=== PATIENT | female | born 1955 | race Caucasian/White ===

== ENCOUNTER 2024-11-18 17:54 | Inpatient (IN) | payer MEDICARE, SELFPAY ==
[2024-11-18] VITALS (14 sets, daily range): BP systolic 112–136; BP diastolic 60–71; BMI 20.9
[2024-11-18] MEDS: ZOFRAN 4 MG IV (08:34)
[2024-11-18] MEDS: NSS 1000 IV (08:35)
[2024-11-18] MEDS: DILAUDID 0.5 MG IV ×2 (08:35→21:50)
[2024-11-18] MEDS: OMNIPAQUE 50 ML PO (08:36)
[2024-11-18 08:43] LABS: % Basophils 0.9 % (0-2); % Eosinophils 0.1 % (0-6); % Immature Granulocytes 0.5 % (0-0.5); % Monocytes 6.3 % (1.7-9.3); % Neutrophils 80.2 % (42.2-75.2); Absolute Basophils 0.1 10^3/uL (0-0.2); Absolute Immature Granulocytes 0.1 10^3/uL (0-0.05); Absolute Lymphocytes 1.4 10^3/uL (1.2-3.4); Absolute Monocytes 0.7 10^3/uL (0.1-0.6); Absolute Neutrophils 9.4 10^3/uL (1.4-6.5); Hematocrit 37.1 % (37.0-47.0); Hemoglobin 12.9 g/dL (12.0-16.0); Mean Corp Hgb Conc. 34.8 g/dL (33.0-37.0); Mean Corpuscular Hgb 32.7 pg (27.0-31.0); Mean Corpuscular Volume 94.2 fL (81.0-99.0); Mean Platelet Volume 9.2 fL (7.4-10.4); Nucleated Red Blood Cells % 0 %; Platelet Count 326 10^3/uL (130-400); Red Blood Cell Count 3.94 10^6/uL (4.20-5.40); Red Cell Dist. Width 14.6 % (11.5-14.5); White Blood Cell Count 11.7 10^3/uL (4.8-10.8)
[2024-11-18 08:44] LABS: Urine Albumin Negative (Neg - Trace); Urine Bilirubin Negative (Negative); Urine Character Clear (Clear); Urine Color Yellow; Urine Glucose Negative (Negative); Urine Ketone Negative (Negative); Urine Leukocyte 1+ (Negative); Urine Nitrite Negative (Negative); Urine Occult Blood 1+ (Negative); Urine Urobilinogen Negative (Neg - 1+); Urine pH 6.5 (5.0-9.0)
[2024-11-18 09:27] LABS: Urine Squamous Cell 26-30 /LPF (Few)
[2024-11-18 09:28] LABS: Urine Bacteria Few (Negative); Urine Red Blood Cell 0-2 /HPF (0-2)
--- NOTE | 2024-11-18 09:34 | ED.GENMED ---
History of Present Illness
General
Chief Complaint: Abdominal Pain
Source: patient
Exam Limitations: none
Time Seen by Provider: 11/18/24 08:11
Nursing documentation reviewed up to this point in time: agreed with
History of Present Illness
History of Present Illness:
pt is a 69 y/o F with h/o HLD, smoker
here with lower abd pain since last evening that seems to have wrapped around to R lower back
fairly constant
wosre with walking and movement
doesn't want to lay on her R side
dec stooling today, dec appetite and n/v x 1
no fever, chills, dysuria, hejaturia
but she does feel a little urge to urinate and not much coming out
she has neve rhad kidney stone
s/p mani
Past History
Past History
ED Past Medical History: Hypercholesterolemia and Other (celiac)
ED Past Surgical History: Cholecystectomy and Orthopedic
Social History
Tobacco: Smoker
Alcohol: Occasional
Drug: None
Review of Systems
Review of Systems
Allergies reviewed?: Yes
All Other Systems: Not applicable
Phy Exam
Physical Exam
Physical Exam:
GENERAL: Alert , in no apparent distress
EYE: pupils equal and reactive
NECK: Supple
ENT: o/p clr, mmm.
CARDIAC: Regular rate and rhythm .
LUNGS: Clear breath sounds bilaterally, no acute respiratory distress, no wheezes/rales/rhonchi
ABDOMEN: Soft, MOD RLQ tenderness, no r/g, no cvat, normal bowel sounds
NEUROLOGICAL: Alert and oriented, no focal neuro deficits
SKIN: Warm and dry, skin intact.
MUSCULOSKELETAL: No edema, well perfused.
PSYCH: Normal and appropriate interaction.
Course
Orders/Labs/Results
Orders:
Orders
11/18/24 Breakfast
NPO
Allow oral meds: Yes
NPO Except Meds: Yes
Allow clear liquids: No
Sips of clear liquids: No
11/18/24 08:23
CT Abd/pel W Iv And Oral Contr Urgent
Comment:
Reason For Exam: RLQ pain, vomiting
0.9% Sodium Chloride 1000 ml [Nss] 1,000 ml IV BOLUS
HYDROmorphone [Dilaudid] 0.5 mg IV NOW STA
Iohexol [Omnipaque] See Protocol PO NOW STA
Ondansetron Injectable [Zofran] 4 mg IV NOW STA
11/18/24 08:30
CBC/With Diff [Complete Blood Count/With Diff] Urgent
Urinalysis Reflex To Culture Urgent
Date Specimen was Collected: 11/18/24
Time Specimen was Collected: 08:06
Urine Microscopic Reflex Cult Urgent
Urine Culture Urgent
KATHYA Source: U
Specimen Description:
Date Specimen was Collected: 11/18/24
Time Specimen was Collected: 08:06
11/18/24 Lunch
NPO
Allow oral meds: Yes
NPO Except Meds: Yes
Allow clear liquids: Sips of Clears
NPO with Ice Chips: Yes
Sips of clear liquids: Yes
11/18/24 12:29
Comprehensive Metabolic Panel Urgent
11/18/24 14:04
HYDROmorphone [Dilaudid] 1 mg IV NOW STA
11/18/24 15:06
Ertapenem [Invanz] 1,000 mg 0.9% Sodium Chloride [Nss] 50 ml IV PRE PROCEDURE
Heparin 5,000 units SC PRE PROCEDURE ONE
Anti-embolism (MARIA ANTONIA) Hose As Directed
Type: Knee high
INT (Intravenous Needle Therapy) As Directed
Comment: place 2 peripheral IVs
Pneumatic Compression Sleeves As Directed
Type: Knee high
Surgical Procedure As Directed
Surgical Procedure: right colectomy
Rx Incentive Spirometry [RESP] Routine
Frequency: q1h while awake
DX Deep Vein Thrombosis Video Routine
11/18/24 15:15
Normosol (Mult Electrolytes) [Normosol-R/Plasmalyte-A] 1,000 ml IV 100 mls/hr
11/18/24 15:33
Lidocaine HCl/Pf [Xylocaine-Mpf 1% Vial] 50 mg .ROUTE .STK-MED ONE
Propofol [Diprivan] 20 ml .ROUTE .STK-MED
Rocuronium [place] [Rocuronium] 50 mg .ROUTE .STK-MED ONE
11/18/24 15:36
Type+Screen Urgent
PTT Urgent
Prothrombin Time Urgent
11/18/24 15:39
HYDROmorphone [Dilaudid] 0.25 mg IV PACU-Q5MPRN PRN
HYDROmorphone [Dilaudid] 0.5 mg IV PACU-Q5MPRN PRN
Meperidine [Demerol] 12.5 mg IV PACU-Q5MPRN PRN
Ondansetron Injectable [Zofran] 4 mg IV PACU-ONCEPRN PRN
Prochlorperazine [Compazine] 5 mg IV PACU-ONCEPRN PRN
Notify MD As Directed
Notify physician if: for SDS patients with known or suspected sleep obstructive sleep apnea, monitor in the
PACU.
Notify MD for any apneic/desaturation episodes
O2 Therapy [RESP] Urgent
Titrate/Wean O2 to maintain O2 sat greater than (%): 92
Special Instructions: -Provide supplemental oxygen to achieve O2 sat of 92% or greater.
-After 15 min, may wean O2 and discontinue if patient is able to maintain O2 sat of 92%
or greater during recovery period.
If patient is a discharge home, without oxygen therapy, notify anestheiologist if
unable to maintain O2 SAT of 92% or greater on room air for MD clearance.
11/18/24 15:45
Normosol (Mult Electrolytes) [Normosol-R/Plasmalyte-A] 1,000 ml IV PER PROTOCOL
Normosol (Mult Electrolytes) [Normosol-R/Plasmalyte-A] 1,000 ml IV PER PROTOCOL
11/18/24 15:47
Bupivacaine 0.5%Pf/Epinephrin [Sensorcain-Mpf Epi 0.5%-0.0005] 60 ml .ROUTE .STK-MED ONE
Dexamethasone Pf [Decadron] 10 mg .ROUTE .STK-MED ONE
11/18/24 15:53
Fentanyl Citrate/Pf [Sublimaze] 100 mcg .ROUTE .STK-MED ONE
11/18/24 15:59
Ondansetron Injectable [Zofran] 4 mg IV PACU-ONCEPRN PRN
Prochlorperazine [Compazine] 5 mg IV PACU-ONCEPRN PRN
11/18/24 16:25
Dexamethasone Sod Phosphate [Decadron] 20 mg .ROUTE .STK-MED ONE
Ondansetron Injectable [Zofran] 4 mg .ROUTE .STK-MED ONE
Phenylephrine HCl/0.9% NaCl [Aftab-Synephrine] 1,000 mcg .ROUTE .STK-MED ONE
Succinylcholine Chloride [Succinylcholine] 200 mg .ROUTE .STK-MED ONE
11/18/24 16:35
Sugammadex Sodium [Bridion] 200 mg .ROUTE .STK-MED ONE
11/18/24 16:45
HYDROmorphone [Dilaudid] 1 mg .ROUTE .STK-MED ONE
11/18/24 17:03
OR Pathology Routine
Pre-Operative Diagnosis: CECAL VOLVULUS
Operative Procedure: RIGHT COLECTOMY
Surgeon: PABLO
Circulating Nurse: BIMAL
Specimen Type: RIGHT COLON
:: PORTION OF FALLOPIAN TUBE
11/18/24 17:44
Admit Patient As Directed
Co-Sign Provider:
Level of Care: Inpatient admission
Assign to:: Medical/Surgical
Physician / Group: pablo
Diagnosis: cecal volvulus; s/p R colectomy
Reason for Hospitalization: cecal volvulus; s/p R colectomy
Expected length of stay greater than two midnights?: Yes
ELOS- Estimated Length of Stay in days: 4
I certify the patient meets the requirements for IP care: Yes
Code Status As Directed
Resuscitation Status: Full Code
HYDROmorphone [Dilaudid] 0.25 mg IV Q4HPRN PRN
HYDROmorphone [Dilaudid] 0.5 mg IV Q4HPRN PRN
Ondansetron Injectable [Zofran] 4 mg IV Q6HPRN PRN
Activity As Directed
Activity Level: Out of Bed- Ad Esthela
Anti-embolism (MARIA ANTONIA) Hose As Directed
Type: Knee high
Catheter- Indwelling As Directed
Reason for insertion: Rosemarie-Op Remove POD #2
Intake/ Output As Directed
Frequency: Per unit guidelines
Pneumatic Compression Sleeves As Directed
Type: Knee high
Vital Signs As Directed
Frequency: Post-operative guidelines
Weight As Directed
Frequency: Daily
PRN Pain Medication Management As Directed
May give lesser potent ordered pain med per pt: Yes
preference::
Protocol:: Medication orders for pain may be administered in a
manner that supports deferring to patient preference
when the pt is:
- Requesting an ordered lesser potent pain medication.
Least to most potent pain medications are defined
as: acetaminophen < NSAID < tramadol < opioids
(morphine, oxycodone, hydromorphone).
- Requesting a lesser dose of the same medication IF
ORDERED.
- Requesting a less intrusive route of administration
if both routes are prescribed by the provider (PO <
IV).
Rx Incentive Spirometry [RESP] Routine
Frequency: q1h while awake
# of times per hour: 10
DX Deep Vein Thrombosis Video Routine
11/18/24 17:45
Normosol (Mult Electrolytes) [Normosol-R/Plasmalyte-A] 1,000 ml IV 80 mls/hr
11/18/24 18:00
Acetaminophen 1000MG/100Ml [Ofirmev] 1,000 mg in 100 ml IV Q6H
Acetaminophen IV Indication:: No NH & No Enteral Access
Ketorolac [Toradol] 15 mg IV Q6H
11/19/24 05:12
Basic Metabolic Panel IN AM
Complete Blood Count/With Diff IN AM
Magnesium IN AM
11/19/24 08:00
Pantoprazole [Protonix IV] 40 mg IV DAILY
Rosuvastatin Calcium [Crestor] 10 mg PO DAILY
Abnormal Lab Results
11/18/24 11/18/24
08:30 12:29
WBC 11.7 H 10^3/uL
(4.8-10.8)
RBC 3.94 L 10^6/uL
(4.20-5.40)
MCH 32.7 H pg
(27.0-31.0)
RDW 14.6 H %
(11.5-14.5)
Abs Immat Gran (auto) 0.1 H 10^3/uL
(0-0.05)
Absolute Neuts (auto) 9.4 H 10^3/uL
(1.4-6.5)
Absolute Monos (auto) 0.7 H 10^3/uL
(0.1-0.6)
Neutrophils % 80.2 H %
(42.2-75.2)
Lymphocytes % 12.0 L %
(20.5-51.1)
Sodium 133 L mmol/L
(135-145)
Glucose 118 H mg/dl
(70-99)
Ur Occult Blood Reflex 1+ A
(Negative)
Leukocyte Esterase Rfl 1+ A
(Negative)
Urine Bacteria (Reflex) Few A
(Negative)
11/18/24 08:30
11/18/24 12:29
Vital Signs
Initial and Last Documented VS:
Initial Vital Signs
Temp Pulse Resp BP Pulse Ox
36.5 C 54 18 117/60 100
11/18/24 07:29 11/18/24 07:29 11/18/24 07:29 11/18/24 07:29 11/18/24 07:29
Last Documented Vital Signs
Temp Pulse Resp BP Pulse Ox
36.8 C 63 16 135/74 97
11/24/24 23:10 11/24/24 23:10 11/24/24 23:10 11/24/24 23:10 11/24/24 23:10
MDM/Problems Addressed
Differential Diagnosis Includes:
kidney stone, obstruction
MDM/Problems Addressed:
melva lassiter 69 y/o F smoker, otherwise healthy, no prev surgeries
abd pain lower abd last night to R lower back, focused on RLQ here; afebrile, stable vitals, tender RLQ with mild distension
ct shows findings concerning for cecal volvulus; vomit x 1 earlier, not passing gas
dr. coley aware
NPO
*Critical Care Note
Total Time (30-74mins, 75-104mins- exclusive of procedures): Not Applicable
ED Attending Note
-
Portions of this chart may have been created with voice recognition software.� Occasional wrong word or��sound alike� substitutions may have occurred due to the inherent limitations of voice recognition software.
Discharge Plan
Departure
Patient Disposition: Admit
Date of Disposition: 11/18/24
Time of Disposition: 15:17
Admit to: Med/Surg
Presentation/result/management discussed w/ accepting MD/DO: Hospitalist
Condition: Fair
Covid-19: Not Applicable
Discharge Problem:
Cecal volvulus
Interventions
Interventions:
*Risk Screen - Suicide Last Done: 11/18/24 19:30
*General Assessment Last Done: 11/18/24 08:20
*Neglect/Abuse Screening Last Done: 11/18/24 08:20
*ED- Fall Risk Assessment Last Done: 11/18/24 08:20
*ED COVID-19 Vaccine History Last Done: 11/18/24 07:34
*Nursing Disposition Last Done: 11/18/24 15:45
SE-Tilflj-Masnojdewa Assessment Last Done: 11/18/24 08:16
Discharge Date and Time
Discharge Date/Time: 11/18/24 15:45
[2024-11-18 12:50] LABS: ALT (SGPT) 16 U/L (0-35); AST (SGOT) 26 U/L (14-36); Albumin 4.1 g/dl (3.5-5.0); Alkaline Phosphatase 65 U/L (38-126); Blood Urea Nitrogen 10 mg/dl (7-17); Calcium 9.2 mg/dl (8.4-10.2); Carbon Dioxide 23 mmol/L (22-30); Chloride 105 mmol/L (98-107); Estimated Creatinine Clearance 86 ml/min; Glucose 118 mg/dl (70-99); Potassium 4.5 mmol/L (3.5-5.1); Sodium 133 mmol/L (135-145); Total Bilirubin 0.5 mg/dl (0.2-1.3); Total Protein 6.7 g/dl (6.3-8.2); eGFR > 60.00
[2024-11-18] MEDS: DILAUDID 1 MG IV (14:07)
--- NOTE | 2024-11-18 15:47 | HPS.HSE ---
Family Physician
-
Family Physician: * NONE
Chief Complaint
-
Abdominal pain with vomiting
History of Present Illness
69-year-old female who presents to the emergency room after she developed acute onset of lower abdominal pain last evening. The pain radiates to her back. Associated with vomiting, last time this morning. She moved her bowels yesterday and there
was no change. She denies any fevers or chills. She feels distended and denies any previous history of similar symptoms. Her last colonoscopy was approximately 10 years ago and it was reportedly normal.
Medical History
Past Medical History
Past Medical History: Reports Hypercholesterolemia
Additional Past Medical History:
Celiac
Past Surgical History: Reports Cholecystectomy and Orthopedic
Social History
Tobacco: Smoker
Alcohol: Occasional
Drug: None
Personal:
Living: With Family
Family History
Family History: Not pertinent
Allergies / Home Medications
Allergies reflects when Allergies were last updated in [facility].
Home Medications with original date entered in [facility]
Allergy/Medication List:
NKDA
Medications:
Crestor 10 mg p.o. daily
Ibuprofen 400 mg p.o. daily as needed mild pain
Vitamins
Review of Systems
-
History Source: Patient
A 12 point ROS was completed and negative except as noted: Yes
Physical Exam
Vital Signs
Vital Signs
Temp Pulse Resp BP Pulse Ox
98 F 51 16 119/66 97
11/18/24 13:57 11/18/24 13:57 11/18/24 13:57 11/18/24 13:57 11/18/24 13:57
Physical Exam
General: Well Developed, Well Nourished, No Apparent Distress and Comfortable
HEENT: Anicteric
Respiratory: Clear
Cardiac: Regular Rhythm
GI: Distended (Distended with tympany; mild tenderness on the left with no peritoneal signs)
Genito-urinary: No costovertebral tender
Musculoskeletal: No Edema
Neuro: Awake and Alert
Laboratory Results
-
11/18/24 08:30
11/18/24 12:29
Laboratory Results
Total Bilirubin 0.5 mg/dl (0.2-1.3) 11/18/24 12:
AST 26 U/L (14-36) 11/18/24 12:29
ALT 16 U/L (0-35) 11/18/24 12:
Alkaline Phosphatase 65 U/L (38-126) 11/18/24 12:29
Data Reviewed
-
CT Scan: Image Personally Visualized and interpreted, Discussed with Physician, Discussed with Patient and Discussed with Family
Lab Data: Labs Reviewed by me, Discussed with Patient and Discussed with Family
Impression/Plan
-
IMPRESSION: Cecal volvulus
PLAN: I reviewed the current findings and treatment options including nonoperative management versus surgery, with the risks and benefits of each. Without surgery there is a risk of perforation and recurrence. I explained the different types of
surgery for volvulus including a cecopexy versus a resection and the operation is dependent upon the findings. I explained that cecal volvulus rarely can be treated with colonoscope and recurrence rate is high. Risks of surgery include, but are
not limited to, bleeding, infection, adhesions, hernias, injury to other structures, recurrence, anastomotic leak if one is made, DVT, positioning injuries, cardiopulmonary complications, and the risks of anesthesia. I also reviewed the typical
recovery both in and out of the hospital and the functional results. Her was on the telephone and all questions answered. They wish to proceed and arrangements are in progress for the operating room.
[2024-11-18 15:56] LABS: PT 13.5 Sec (11.4-14.6)
[2024-11-18 15:57] LABS: APTT 30.3 Sec (23.4-35.0)
--- NOTE | 2024-11-18 17:41 | W.IMMPOSTOP ---
Surgical Immed Post Op Note
-
Primary Surgeon: Roseanna Jarvis MD
Assisting Surgeon: RITESH Wolf
Pre-op Diagnosis: cecal volvulus
Post-op Diagnosis: same
Procedure Performed: right colectomy
Anesthesia Type: general plus local
Specimen / Cultures: 1) right colon 2) small portion of right fallopian tube
Estimated Blood Loss: 25 cc
Complications: no immediate
Operative Findings: cecal volvulus without perforation or gangrene with involvement of right fallopian tube
NGT in stomach (confirmed).
Rossi in bladder.
Will send to med surg.
[2024-11-18] MEDS: DILAUDID 0.25 MG IV ×2 (18:10→18:34)
[2024-11-18] MEDS: OFIRMEV 100 IV (18:39)
[2024-11-18] MEDS: TORADOL 15 MG IV (18:39)
--- NOTE | 2024-11-18 19:30 | PTCARENOTE ---
Arrived to 2S @ 1930 with NGT in R nare to low intermittent suction, gaston in place, 2L NC, and no complaints of pain. Bed in lowest position, call brody within reach, care remains ongoing.
[2024-11-18] MEDS: NORMOSOL-R/PLASMALYTE-A 1000 IV (19:45)
[2024-11-19] MEDS: TORADOL 15 MG IV ×2 (00:05→05:14)
[2024-11-19] MEDS: OFIRMEV 100 IV ×4 (00:24→22:34)
[2024-11-19] MEDS: DILAUDID 0.5 MG IV ×5 (01:56→23:15)
[2024-11-19 03:15] VITALS: BP 106/59
[2024-11-19] MEDS: NORMOSOL-R/PLASMALYTE-A 1000 IV ×2 (04:01→16:46)
[2024-11-19 06:00] VITALS: BMI 20.6
[2024-11-19] MEDS: DILAUDID 0.25 MG IV (06:44)
[2024-11-19 07:25] VITALS: BP 104/59
[2024-11-19 07:31] LABS: % Basophils 0.1 % (0-2); % Immature Granulocytes 0.6 % (0-0.5); % Lymphocytes 3.8 % (20.5-51.1); % Monocytes 5.1 % (1.7-9.3); % Neutrophils 90.4 % (42.2-75.2); Absolute Immature Granulocytes 0.1 10^3/uL (0-0.05); Absolute Lymphocytes 0.7 10^3/uL (1.2-3.4); Absolute Monocytes 0.9 10^3/uL (0.1-0.6); Absolute Neutrophils 15.7 10^3/uL (1.4-6.5); Hematocrit 29.3 % (37.0-47.0); Mean Corp Hgb Conc. 34.1 g/dL (33.0-37.0); Mean Corpuscular Hgb 32.7 pg (27.0-31.0); Mean Corpuscular Volume 95.8 fL (81.0-99.0); Nucleated Red Blood Cells % 0 %; Platelet Count 290 10^3/uL (130-400); Red Blood Cell Count 3.06 10^6/uL (4.20-5.40); Red Cell Dist. Width 15.1 % (11.5-14.5); White Blood Cell Count 17.3 10^3/uL (4.8-10.8)
[2024-11-19 07:44] LABS: Blood Urea Nitrogen 8 mg/dl (7-17); Calcium 8.3 mg/dl (8.4-10.2); Carbon Dioxide 25 mmol/L (22-30); Chloride 111 mmol/L (98-107); Estimated Creatinine Clearance 84 ml/min; Glucose 126 mg/dl (70-99); Magnesium 2.4 mg/dl (1.6-2.3); Potassium 4.2 mmol/L (3.5-5.1); Sodium 142 mmol/L (135-145); eGFR > 60.00
[2024-11-19] MEDS: NSS (PRESERVATIVE FREE) 10 ML IV ×2 (08:55→20:05)
[2024-11-19] MEDS: PROTONIX IV 40 MG IV ×2 (08:55→20:05)
--- NOTE | 2024-11-19 09:00 | W.PN.CRS1 ---
Today's Communication / Plan
-
Continue NG tube to low intermittent wall suction.
N.p.o. (okay for p.o. meds and ice chips)
IV fluids, replete lytes
DC Rossi
DVT prophylaxis
PPI
Out of bed/ambulate
Assessment/Plan
-
This is a 69-year-old female who presented with abdominal pain and found to have a cecal volvulus now POD #1 open right hemicolectomy. Doing well, expected postoperative course.
Continue NG tube to low intermittent wall suction.
N.p.o. (okay for p.o. meds and ice chips)
IV fluids, replete lytes
DC Rossi
DVT prophylaxis
PPI
Out of bed/ambulate
Subjective Data
Procedure
Open right hemicolectomy (Dr. Jarvis 11/18/2024)
Subjective Data
Date of Service: November 19, 2024
Interval Events:
No acute events overnight. Slept well. Pain Controlled. Denies Nausea/Vomiting, +bowel function.
Objective Data
-
Vital Signs
Temp Pulse Resp BP Pulse Ox
97.8 F 59 16 106/59 95
11/19/24 03:15 11/19/24 03:15 11/19/24 03:15 11/19/24 03:15 11/19/24 03:15
Intake & Output
11/18/24 11/19/24 11/20/24
06:59 06:59 06:59
Intake Total 490 / 490
Output Total 2200 / 2200
Balance -1710 / -1710
Intake:
IV fluids (Total) 300 / 300
normosol 200 / 200
ofirmev 100 / 100
IV piggybacks 100 / 100
Amount instilled into GI Tube ( 90 / 90
Total)
Oliver Sump 90 / 90
Output:
Gastrointestinal tube output ( 650 / 650
Total)
Oliver Sump 650 / 650
Urine, Rossi 1550 / 1550
Lab Results
11/19/24 05:12
11/19/24 05:12
Physical Exam
-
General: No Acute Distress
Abdomen: Soft, Distended, Tender and Other (NG 650 clear)
Incision: Clear, Dry, Intact
Data Reviewed
-
CT Scan: Image Reviewed
[2024-11-19] MEDS: CHLORASEPTIC/SORE THROAT SPRAY 2 SPRAY PO (12:47)
[2024-11-19 15:30] VITALS: BP 125/60
[2024-11-19 23:30] VITALS: BP 132/61
[2024-11-20] MEDS: NORMOSOL-R/PLASMALYTE-A 1000 IV ×3 (01:16→23:17)
[2024-11-20] MEDS: DILAUDID 0.5 MG IV ×5 (02:40→17:29)
[2024-11-20] MEDS: OFIRMEV 100 IV (03:46)
[2024-11-20 06:00] VITALS: BMI 21.1
[2024-11-20 06:55] LABS: Hematocrit 23.3 % (37.0-47.0); Mean Corp Hgb Conc. 34.3 g/dL (33.0-37.0); Mean Corpuscular Hgb 33.3 pg (27.0-31.0); Mean Corpuscular Volume 97.1 fL (81.0-99.0); Platelet Count 258 10^3/uL (130-400); Red Cell Dist. Width 15.3 % (11.5-14.5); White Blood Cell Count 13.8 10^3/uL (4.8-10.8)
[2024-11-20 07:25] VITALS: BP 135/59
[2024-11-20 07:40] LABS: Blood Urea Nitrogen 12 mg/dl (7-17); Calcium 8.1 mg/dl (8.4-10.2); Carbon Dioxide 29 mmol/L (22-30); Chloride 110 mmol/L (98-107); Estimated Creatinine Clearance 74 ml/min; Glucose 91 mg/dl (70-99); Magnesium 2.8 mg/dl (1.6-2.3); Potassium 4.2 mmol/L (3.5-5.1); Sodium 142 mmol/L (135-145); eGFR > 60.00
[2024-11-20] MEDS: PROTONIX IV 40 MG IV ×2 (07:50→20:03)
[2024-11-20] MEDS: NSS (PRESERVATIVE FREE) 10 ML IV ×2 (07:50→20:03)
[2024-11-20] MEDS: TRANEXAMIC ACID 110 MG IV (09:01)
--- NOTE | 2024-11-20 09:14 | W.PN.CRS1 ---
Today's Communication / Plan
-
d/c NGT
Assessment/Plan
-
This is a 69-year-old female who presented with abdominal pain and found to have a cecal volvulus now POD #2 open right hemicolectomy. Doing well, expected postoperative course.
AFVSS
Passing some flatus
Some BRBPR yesterday, suspect some anastomotic oozing
Acute anemia secondary to blood loss and hemodilution.
Leukocytosis continues to trend down off abx
Plan:
D/C NGT
N.p.o. (okay for p.o. meds and ice chips)
Continue IV fluids
TXA x1gm now, then recheck h/h later today. Transfuse prn.
DVT prophylaxis held given acute anemia
Toradol on hold. Tylenol scheduled, narcotics prn
PPI BID
Out of bed/ambulate
Subjective Data
Procedure
Open right hemicolectomy (Dr. Jarvis 11/18/2024)
Subjective Data
Date of Service: November 20, 2024
Patient seen and examined at bedside with Dr. Horowitz. Denies n/v. Passing some flatus. No Bm's today. Some BRPR yesterday x2. Was OOB to chair most of the day yesterday. Pain improving but still sore.
Objective Data
-
Vital Signs
Temp Pulse Resp BP Pulse Ox
98.2 F 73 16 135/59 97
11/20/24 07:25 11/20/24 07:25 11/20/24 07:25 11/20/24 07:25 11/20/24 07:25
Intake & Output
11/19/24 11/20/24 11/21/24
06:59 06:59 06:59
Intake Total 490 / 490 180 / 180 110 / 110
Output Total 2200 / 2200 900 / 900
Balance -1710 / -1710 -720 / -720 110 / 110
Intake:
IV fluids (Total) 300 / 300
normosol 200 / 200
ofirmev 100 / 100
IV piggybacks 100 / 100 110 / 110
Amount instilled into GI Tube ( 90 / 90 180 / 180
Total)
[place] Sump 90 / 90 180 / 180
Output:
Gastrointestinal tube output ( 650 / 650 500 / 500
Total)
[place] Sump 650 / 650 500 / 500
Urine, Rossi 1550 / 1550
Urine, Voided 400 / 400
Lab Results
11/20/24 05:22
Physical Exam
-
General: No Acute Distress
Abdomen: Soft, Distended (very mild), Tender (generalized) and Other (NGT with light gastric contents)
Incision: Clear, Dry, Intact
[2024-11-20] MEDS: TYLENOL 650 MG PO ×4 (11:51→23:17)
[2024-11-20] MEDS: CHLORASEPTIC/SORE THROAT SPRAY 2 SPRAY PO (12:00)
[2024-11-20 12:47] LABS: Hematocrit 23.7 % (37.0-47.0)
[2024-11-20 16:19] VITALS: BP 115/61
[2024-11-20] MEDS: ROXICODONE 5 MG PO (20:24)
[2024-11-20 23:05] VITALS: BP 131/69
[2024-11-21] MEDS: DILAUDID 0.5 MG IV ×2 (00:40→05:21)
[2024-11-21] MEDS: TYLENOL 650 MG PO (04:11)
[2024-11-21 06:00] VITALS: BMI 21.1
[2024-11-21 07:05] VITALS: BP 137/72
[2024-11-21 07:25] LABS: Hematocrit 26.5 % (37.0-47.0); Hemoglobin 8.8 g/dL (12.0-16.0); Mean Corp Hgb Conc. 33.2 g/dL (33.0-37.0); Mean Corpuscular Hgb 33.2 pg (27.0-31.0); Mean Platelet Volume 9.6 fL (7.4-10.4); Platelet Count 282 10^3/uL (130-400); Red Blood Cell Count 2.65 10^6/uL (4.20-5.40); Red Cell Dist. Width 15.3 % (11.5-14.5); White Blood Cell Count 12.1 10^3/uL (4.8-10.8)
[2024-11-21 08:14] LABS: Blood Urea Nitrogen 10 mg/dl (7-17); Calcium 8.7 mg/dl (8.4-10.2); Carbon Dioxide 27 mmol/L (22-30); Chloride 113 mmol/L (98-107); Estimated Creatinine Clearance 74 ml/min; Glucose 112 mg/dl (70-99); Sodium 145 mmol/L (135-145); eGFR > 60.00
[2024-11-21] MEDS: NSS (PRESERVATIVE FREE) 10 ML IV ×2 (08:26→19:40)
[2024-11-21] MEDS: ZOFRAN 4 MG IV ×2 (08:26→15:27)
[2024-11-21] MEDS: PROTONIX IV 40 MG IV ×2 (08:26→19:40)
[2024-11-21] MEDS: TYLENOL PO ×5 (08:30→23:23)
--- NOTE | 2024-11-21 09:03 | W.PN.CRS1 ---
Today's Communication / Plan
-
remain npo
compazine
Assessment/Plan
-
This is a 69-year-old female who presented with abdominal pain and found to have a cecal volvulus now POD #3 open right hemicolectomy. Doing well, expected postoperative course.
AFVSS
Passing some flatus
three bloody bowel movements over the weekend
WBC 12.1 (13.8), Hgb 8.8 (8.0, 8.0, 10.0)
Plan:
-Low threshold for NGT if vomits
- Remain N.p.o. (okay for p.o. meds and ice chips)
- Continue IV fluids
- Trend hemoglobin
- DVT prophylaxis held given acute anemia. TEDS/SCDS in place.
- Toradol on hold. Tylenol scheduled, Dilaudid prn
- PPI BID
- Out of bed/ambulate
- Will add compazine
Subjective Data
Procedure
Open right hemicolectomy (Dr. Jarvis 11/18/2024)
Subjective Data
Date of Service: November 21, 2024
Patient states she feels nauseous. She had some abdominal cramping overnight. Her abdominal pain was 'bad' overnight. She is currently nauseous. She had three bowel movements that were bloody.
Objective Data
-
Vital Signs
Temp Pulse Resp BP Pulse Ox
99.0 F 79 18 137/72 98
11/21/24 07:05 11/21/24 07:05 11/21/24 07:05 11/21/24 07:05 11/21/24 07:05
Intake & Output
11/20/24 11/21/24 11/22/24
06:59 06:59 06:59
Intake Total 180 / 180 1040 / 1040
Output Total 900 / 900 1875 / 1875
Balance -720 / -720 -835 / -835
Intake:
IV fluids (Total) 900 / 900
IV piggybacks 110 / 110
Amount instilled into GI Tube ( 180 / 180 / 30
Total)
[place] Sump 180 / 180 /
Output:
Gastrointestinal tube output ( 500 / 500
Total)
[place] Sump 500 / 500
Urine, Voided 400 / 400 1850 / 1850
Other:
Number of approximated SMALL 1
amounts of urine
Lab Results
11/21/24 06:26
11/21/24 06:26
Physical Exam
-
General: No Acute Distress and AOx3
Abdomen: Soft, Distended (mild) and Tender (throughout, moderate)
Skin: Warm and Dry
Incision: Clear, Dry, Intact
--- NOTE | 2024-11-21 10:27 | PTCARENOTE ---
Pt strict NPO at this time per Amanda Ring Pa-c. Care ongoing.
[2024-11-21] MEDS: NORMOSOL-R/PLASMALYTE-A 1000 IV ×2 (10:44→22:43)
[2024-11-21] MEDS: COMPAZINE 5 MG IV (10:44)
--- NOTE | 2024-11-21 11:21 | CM ---
CM following re: discharge planning.
Reviewed pt's chart, met with pt.
Pt is a 69 year old female, admitted with primary dx of Abdominal pain, now POD #3 open right hemicolectomy.
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 pt was very unhappy to participate in the interview stated: 'I do not need all of that'. CM respectfully ended the interview.
D/C plan: home no needs. to transport at discharge.
CM will follow with discharge plan updates as hospitalization progresses
[2024-11-21 14:39] VITALS: BMI 21.1
[2024-11-21 15:20] VITALS: BP 146/73
--- NOTE | 2024-11-21 15:30 | PTCARENOTE ---
Addendum entered by Radha Inman RN 11/21/24 15:52:
BP stable 146/73.
Original Note:
Pt with ongoing nausea throughout today, PRN antiemetics provided per order. Pt also c/o dizziness and generalized unwell feeling. Distension and abdominal pain unchanged from this am, pt aware to notify RN of any changes. Pt with larger bloody BM
this afternoon, Amanda Ring Pa-c made aware. Repeat H+H ordered, no imaging indicated at this time. Care remains ongoing.
[2024-11-21 18:00] VITALS: BP 135/73
[2024-11-21 18:06] LABS: Hematocrit 28.2 % (37.0-47.0); Hemoglobin 9.5 g/dL (12.0-16.0)
--- NOTE | 2024-11-21 18:58 | W.PN.UPDATE ---
Update Note
Progress Note Update
Apparently passed some blood transrectally with a BM earlier today. Repeat hemoglobin this afternoon okay at 9.5. I did assess the patient at the bedside. Her nausea is somewhat better than this morning. I am okay with ice chips and sips. I
spoke to the patient's on the phone and updated him as well.
--- NOTE | 2024-11-21 21:51 | PTCARENOTE ---
Pt with large gelatinous melena in toilet. Maria C, SCHOOL BUS TECHNICIAN notified and aware. H&H ordered urgent. Care remains ongoing.
[2024-11-21 23:05] VITALS: BP 125/68
[2024-11-21] MEDS: MELATONIN 5 MG PO (23:23)
[2024-11-21 23:46] LABS: Hematocrit 23.9 % (37.0-47.0); Hemoglobin 8.2 g/dL (12.0-16.0)
[2024-11-22] VITALS (7 sets, daily range): BP systolic 114–135; BP diastolic 66–73; BMI 20.6
[2024-11-22] MEDS: TYLENOL PO ×7 (03:08→23:18)
[2024-11-22 07:19] LABS: % Basophils 0.8 % (0-2); % Eosinophils 2.9 % (0-6); % Immature Granulocytes 0.3 % (0-0.5); % Lymphocytes 14.6 % (20.5-51.1); % Monocytes 12.2 % (1.7-9.3); % Neutrophils 69.2 % (42.2-75.2); Absolute Basophils 0.1 10^3/uL (0-0.2); Absolute Eosinophils 0.3 10^3/uL (0-0.7); Absolute Lymphocytes 1.3 10^3/uL (1.2-3.4); Absolute Monocytes 1.1 10^3/uL (0.1-0.6); Absolute Neutrophils 6.1 10^3/uL (1.4-6.5); Hematocrit 24.8 % (37.0-47.0); Hemoglobin 8.3 g/dL (12.0-16.0); Mean Corp Hgb Conc. 33.5 g/dL (33.0-37.0); Mean Corpuscular Hgb 32.9 pg (27.0-31.0); Mean Corpuscular Volume 98.4 fL (81.0-99.0); Mean Platelet Volume 9.3 fL (7.4-10.4); Nucleated Red Blood Cells % 0 %; Platelet Count 306 10^3/uL (130-400); Red Blood Cell Count 2.52 10^6/uL (4.20-5.40); Red Cell Dist. Width 15.1 % (11.5-14.5); White Blood Cell Count 8.8 10^3/uL (4.8-10.8)
[2024-11-22 07:44] LABS: Blood Urea Nitrogen 9 mg/dl (7-17); Calcium 8.4 mg/dl (8.4-10.2); Carbon Dioxide 26 mmol/L (22-30); Chloride 117 mmol/L (98-107); Estimated Creatinine Clearance 72 ml/min; Glucose 106 mg/dl (70-99); Potassium 3.9 mmol/L (3.5-5.1); Sodium 148 mmol/L (135-145); eGFR > 60.00
[2024-11-22] MEDS: NSS (PRESERVATIVE FREE) 10 ML IV ×2 (08:51→19:41)
[2024-11-22] MEDS: PROTONIX IV 40 MG IV ×2 (08:52→19:41)
--- NOTE | 2024-11-22 10:25 | W.PN.CRS1 ---
Today's Communication / Plan
-
clear liquids
Assessment/Plan
-
This is a 69-year-old female who presented with abdominal pain and found to have a cecal volvulus now POD #4 open right hemicolectomy. Doing well, expected postoperative course.
AFVSS
Passing some flatus
2 bloody bowel movements in the last 24 hours
WBC 8.8 (12.1), Hgb 8.3 (8.2)
Plan:
-Low threshold for NGT if vomits
- Advance to clears
- Continue IV fluids
- Trend hemoglobin
- DVT prophylaxis held given acute anemia. TEDS/SCDS in place.
- Toradol on hold. Tylenol scheduled, Dilaudid prn
- PPI BID
- Out of bed/ambulate
- On compazine and zofran PRN
Subjective Data
Procedure
Open right hemicolectomy (Dr. Jarvis 11/18/2024)
Subjective Data
Date of Service: November 22, 2024
Patient states had two bloody bowel movements in 24 hours. She denies nausea or vomiting. She has flatus. She has mild pain in the midline incision. She is urinating without difficulty.
Objective Data
-
Vital Signs
Temp Pulse Resp BP Pulse Ox
97.9 F 76 16 131/73 98
11/22/24 07:45 11/22/24 07:45 11/22/24 07:45 11/22/24 07:45 11/22/24 07:45
Intake & Output
11/21/24 11/22/24 11/23/24
06:59 06:59 06:59
Intake Total 1040 / 1040 1420 / 1420
Output Total 1875 / 1875
Balance -835 / -835 1420 / 1420
Intake:
Oral fluids 460 / 460
IV fluids (Total) 900 / 900 960 / 960
IV piggybacks 110 / 110
Amount instilled into GI Tube (
Total)
[place] Sump
Output:
Gastrointestinal tube output (
Total)
[place] Sump
Urine, Voided 1849
Other:
Number of approximated SMALL 1
amounts of urine
Number of approximated MODERATE 1
amounts of urine
Lab Results
11/22/24 06:59
11/22/24 06:59
Physical Exam
-
General: No Acute Distress and AOx3
Abdomen: Soft, Non Distended and Tender (mild)
Skin: Warm and Dry
Incision: Clear, Dry, Intact
[2024-11-22] MEDS: NORMOSOL-R/PLASMALYTE-A 1000 IV (12:24)
[2024-11-22] MEDS: TRANEXAMIC ACID 110 MG IV (14:09)
[2024-11-22 15:24] LABS: Hemoglobin 7.6 g/dL (12.0-16.0)
--- NOTE | 2024-11-22 16:26 | W.PN.UPDATE ---
Update Note
Progress Note Update
Patient seen at bedside. Had some transrectal blood earlier. Having flatus too. Denies nausea but some early satiety with clears. Vitals fine. Just received a gram of TXA. Repeat Hg down to 7.6 from 8.3. Will order 1 unit of PRBCs to be
transfused. Continue IVFs and clears. I suspect low grade anastomotic bleeding--should ultimately be self-limiting. Patient updated as was (via phone).
[2024-11-23] MEDS: NORMOSOL-R/PLASMALYTE-A 1000 IV ×2 (02:03→15:16)
[2024-11-23] MEDS: TYLENOL PO ×5 (03:14→20:05)
[2024-11-23 06:00] VITALS: BMI 21.2
[2024-11-23 06:26] LABS: % Eosinophils 5.4 % (0-6); % Immature Granulocytes 0.5 % (0-0.5); % Neutrophils 60.1 % (42.2-75.2); Absolute Basophils 0.1 10^3/uL (0-0.2); Absolute Eosinophils 0.5 10^3/uL (0-0.7); Absolute Lymphocytes 1.5 10^3/uL (1.2-3.4); Absolute Monocytes 1.3 10^3/uL (0.1-0.6); Absolute Neutrophils 5.1 10^3/uL (1.4-6.5); Hematocrit 24.6 % (37.0-47.0); Hemoglobin 8.5 g/dL (12.0-16.0); Mean Corp Hgb Conc. 34.6 g/dL (33.0-37.0); Mean Corpuscular Hgb 32.3 pg (27.0-31.0); Mean Corpuscular Volume 93.5 fL (81.0-99.0); Mean Platelet Volume 9.5 fL (7.4-10.4); Nucleated Red Blood Cells % 0 %; Platelet Count 294 10^3/uL (130-400); Red Blood Cell Count 2.63 10^6/uL (4.20-5.40); Red Cell Dist. Width 15.7 % (11.5-14.5); White Blood Cell Count 8.4 10^3/uL (4.8-10.8)
[2024-11-23 07:05] VITALS: BP 123/69
[2024-11-23 07:10] LABS: Blood Urea Nitrogen 6 mg/dl (7-17); Calcium 8.1 mg/dl (8.4-10.2); Carbon Dioxide 24 mmol/L (22-30); Chloride 114 mmol/L (98-107); Estimated Creatinine Clearance 75 ml/min; Glucose 98 mg/dl (70-99); Potassium 3.8 mmol/L (3.5-5.1); Sodium 143 mmol/L (135-145); eGFR > 60.00
[2024-11-23] MEDS: NSS (PRESERVATIVE FREE) 10 ML IV ×2 (08:39→20:05)
[2024-11-23] MEDS: PROTONIX IV 40 MG IV ×2 (08:39→20:04)
--- NOTE | 2024-11-23 09:11 | W.PN.CRS1 ---
Today's Communication / Plan
-
clears now, then advance to fulls
Assessment/Plan
-
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 Doing well, expected postoperative course.
Vitals normal
WBC 8.4 (8.8), Hgb 8.5 (7.6)
6/3- 1 unit PRBCs
Plan:
-Low threshold for NGT if vomits
- Advance to clears, possible fulls for dinner
- Continue IV fluids until tolerating po
- Trend hemoglobin
- DVT prophylaxis held given acute anemia. TEDS/SCDS in place.
- Toradol on hold. Tylenol scheduled, Dilaudid prn
- PPI BID
- Out of bed/ambulate
- On compazine and zofran PRN
Subjective Data
Procedure
Open right hemicolectomy (Dr. Jarvis 11/18/2024)
Subjective Data
Date of Service: November 23, 2024
Patient states she has no appetite. She has flatus. She is not that hungry. She saw a small amount of blood when she wiped since her last episode yesterday afternoon. Denies nausea or vomiting.
Objective Data
-
Vital Signs
Temp Pulse Resp BP Pulse Ox
98.7 F 73 16 123/69 95
11/23/24 07:05 11/23/24 07:05 11/23/24 07:05 11/23/24 07:05 11/23/24 07:05
Intake & Output
11/22/24 11/23/24 11/24/24
06:59 06:59 06:59
Intake Total 1420 / 1420 3010 / 3010
Balance 1420 / 1420 3010 / 3010
Intake:
Oral fluids 460 / 460 1440 / 1440
IV fluids (Total) 960 / 960 960 / 960
IV piggybacks 360 / 360
Blood Product Amount Infused ( 250 / 250
mL)
Packed Rbc Leukoreduced Unit 250 / 250
[id number]
Other:
Number of approximated SMALL 1
amounts of urine
Number of approximated MODERATE 1 4
amounts of urine
Number of unmeasured liquid
stools
Rectum 2
Lab Results
11/23/24 05:20
11/23/24 05:20
Physical Exam
-
General: No Acute Distress and AOx3
Abdomen: Soft, Non Distended and Non Tender
Skin: Warm and Dry
Incision: Clear, Dry, Intact
--- NOTE | 2024-11-23 12:55 | CM ---
CM following re: discharge planning.
Reviewed pt's chart, met with pt.
Pt is POD #5 open right hemicolectomy, continue supportive care.
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
D/C plan: home with anticipated no needs no needs. to transport at discharge.
CM will follow with discharge plan updates as hospitalization progresses
[2024-11-23 15:05] VITALS: BP 130/71
[2024-11-23 23:05] VITALS: BP 142/76
[2024-11-24] MEDS: TYLENOL PO ×7 (00:39→23:04)
[2024-11-24 06:00] VITALS: BMI 20.5
[2024-11-24 06:56] LABS: Hematocrit 25.7 % (37.0-47.0); Hemoglobin 9.2 g/dL (12.0-16.0)
[2024-11-24 07:15] VITALS: BP 140/82
[2024-11-24] MEDS: PROTONIX IV 40 MG IV (08:03)
[2024-11-24] MEDS: NSS (PRESERVATIVE FREE) 10 ML IV (08:03)
--- NOTE | 2024-11-24 10:08 | W.PN.CRS1 ---
Today's Communication / Plan
-
low residue
Assessment/Plan
-
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 Doing well, expected postoperative course.
Vitals normal
Hgb 9.2 (8.4)
6/3- 1 unit PRBCs
Plan:
-Advance diet to low residue
- OKay to dc IVFs
- Trend hemoglobin
- DVT prophylaxis held given acute anemia. TEDS/SCDS in place.
- Toradol on hold. Tylenol scheduled, Dilaudid prn
- PPI BID
- Out of bed/ambulate
- On compazine and zofran PRN
-Anticipate d/c tomorrow
Subjective Data
Procedure
Open right hemicolectomy (Dr. Jarvis 11/18/2024)
Subjective Data
Date of Service: November 24, 2024
Patient states she feels well. Her pain is controlled. She has what sounds like a bowel movement two days ago. Denies nausea or vomiting.
Objective Data
-
Vital Signs
Temp Pulse Resp BP Pulse Ox
97.9 F 83 18 140/82 98
11/24/24 07:15 11/24/24 07:15 11/24/24 07:15 11/24/24 07:15 11/24/24 07:15
Intake & Output
11/23/24 11/24/24 11/25/24
06:59 06:59 06:59
Intake Total 3010 / 3010 1860 / 1860 1680 / 1680
Balance 3010 / 3010 1860 / 1860 1680 / 1680
Intake:
Oral fluids 1440 / 1440 900 / 900 880 / 880
IV fluids (Total) 960 / 960 960 / 960 800 / 800
IV piggybacks 360 / 360
Blood Product Amount Infused ( 250 / 250
mL)
Packed Rbc Leukoreduced Unit 250 / 250
[id number]
Other:
Number of approximated MODERATE 4 5 3
amounts of urine
Number of unmeasured liquid
stools
Rectum 2
Lab Results
11/24/24 06:37
11/23/24 05:20
Physical Exam
-
General: No Acute Distress and AOx3
Abdomen: Soft, Non Distended and Non Tender
Skin: Warm and Dry
Wound: No Signs of Infection
[2024-11-24 16:00] VITALS: BP 140/69
[2024-11-24] MEDS: PROTONIX IV IV ×2 (19:45→19:49)
[2024-11-24] MEDS: NSS (PRESERVATIVE FREE) IV ×2 (19:45→19:49)
[2024-11-24] MEDS: PROTONIX 40 MG PO (20:29)
[2024-11-24 23:10] VITALS: BP 135/74
[2024-11-25] MEDS: TYLENOL PO ×2 (03:04→08:21)
[2024-11-25 05:22] VITALS: BMI 20.3
[2024-11-25 05:42] LABS: Hematocrit 24.8 % (37.0-47.0); Hemoglobin 8.9 g/dL (12.0-16.0); Mean Corp Hgb Conc. 35.9 g/dL (33.0-37.0); Mean Corpuscular Hgb 33.1 pg (27.0-31.0); Mean Corpuscular Volume 92.2 fL (81.0-99.0); Mean Platelet Volume 9.2 fL (7.4-10.4); Platelet Count 351 10^3/uL (130-400); Red Blood Cell Count 2.69 10^6/uL (4.20-5.40); Red Cell Dist. Width 14.7 % (11.5-14.5); White Blood Cell Count 8.9 10^3/uL (4.8-10.8)
[2024-11-25 06:07] LABS: Blood Urea Nitrogen 4 mg/dl (7-17); Calcium 8.6 mg/dl (8.4-10.2); Carbon Dioxide 24 mmol/L (22-30); Chloride 111 mmol/L (98-107); Estimated Creatinine Clearance 71 ml/min; Glucose 97 mg/dl (70-99); Sodium 138 mmol/L (135-145); eGFR > 60.00
[2024-11-25 07:00] VITALS: BP 115/69
--- NOTE | 2024-11-25 07:43 | W.PN.CRS1 ---
Today's Communication / Plan
-
discharge
Assessment/Plan
-
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 Doing well, expected postoperative course.
Vitals normal
Hgb 8.9 (9.2), Wbc 8.9
6/3- 1 unit PRBCs
Plan:
- Continue low residue
- Trend hemoglobin (has been stable for 2 days)
- DVT prophylaxis held given acute anemia. TEDS/SCDS in place.
- Toradol on hold. Tylenol scheduled, Dilaudid prn
- PPI BID
- Out of bed/ambulate
- On compazine and zofran PRN
- Okay for discharge today. All discharge instructions discussed with patient including medications, activity levels, and follow up. All questions addressed.
Subjective Data
Procedure
Open right hemicolectomy (Dr. Jarvis 11/18/2024)
Subjective Data
Date of Service: November 25, 2024
Patient states she is doing well. No further bleeding. Denies nausea or vomiting. Her pain is well controlled.
Objective Data
-
Vital Signs
Temp Pulse Resp BP Pulse Ox
98.3 F 63 16 135/74 97
11/24/24 23:10 11/24/24 23:10 11/24/24 23:10 11/24/24 23:10 11/24/24 23:10
Intake & Output
11/24/24 11/25/24 11/26/24
06:59 06:59 06:59
Intake Total 0 / 0 2880 / 2880
Balance 1860 / 1860 2880 / 2880
Intake:
Oral fluids 900 / 900 0 / 2080
IV fluids (Total) 960 / 960 800 / 800
Other:
Number of approximated SMALL 2
amounts of urine
Number of approximated MODERATE 5 2
amounts of urine
Lab Results
11/25/24 05:17
11/25/24 05:17
Physical Exam
-
General: No Acute Distress and AOx3
Abdomen: Soft, Non Distended and Non Tender
Skin: Warm and Dry
Incision: Clear, Dry, Intact
[2024-11-25] MEDS: PROTONIX 40 MG PO (08:27)
--- NOTE | 2024-11-25 09:56 | CM ---
CM following re: discharge planning.
Reviewed pt's chart.
Discharge order noted. Pt is aware and she stated her will transport home. Pt stared she will resume outpatient therapy upon the discharge.
D/C plan: home with resumptions of PT and OT and family support. to transport.
--- NOTE | 2024-11-25 10:01 | CM ---
CM following re: discharge planning.
Reviewed pt's chart.
Discharge order noted. Pt is aware and she stated her will transport home.
No after care VN services indicated.
D/C plan: home no needs. to transport.
== END 2024-11-25 09:40 | disposition home or self-care (01) | DRG 330 ==
LOC: 2 SOUTH 17:54
PROVIDERS: Nurse Practitioner Family; Physician Assistant; Registered Nurse; Surgery; ADMITTING PHYSICIAN Surgery; EMERGENCY PHYSICIAN Student in an Organized Health Care Education/Training Program
PROC: 0DTF0ZZ Resection of Right Large Intestine, Open Approach (ICD-10-PCS; 2024-11-18)
PROC: 0UB50ZZ Excision of Right Fallopian Tube, Open Approach (ICD-10-PCS; 2024-11-18)
PROC: 30233N1 Transfusion of Nonautologous Red Blood Cells into Peripheral Vein, Percutaneous Approach (ICD-10-PCS; 2024-11-22)
DX: K56.2 Volvulus (principal); D62 Acute posthemorrhagic anemia; K91.840 Postprocedural hemorrhage of a digestive system organ or structure following a digestive system procedure; E78.00 Pure hypercholesterolemia, unspecified; F17.200 Nicotine dependence, unspecified, uncomplicated; G47.33 Obstructive sleep apnea (adult) (pediatric); K56.7 Ileus, unspecified; Y83.2 Surgical operation with anastomosis, bypass or graft as the cause of abnormal reaction of the patient, or of later complication, without mention of misadventure at the time of the procedure; D72.829 Elevated white blood cell count, unspecified; Z90.49 Acquired absence of other specified parts of digestive tract
CPT/HCPCS: 88304; 88305; 88307; 74177; 80048; 80053; 81003; 81015; 83735; 85014; 85018; 85025; 85027; 85610; 85730; 86850; 86900; 86901; 86920; 87086; 96361; 96374; 96375; 96376; 99284; C1776; J1335; P9016; Q9967

== ENCOUNTER 2024-12-22 15:22 | Inpatient (IN) | payer MEDICARE, SELFPAY ==
[2024-12-22] VITALS (10 sets, daily range): BP systolic 92–120; BP diastolic 48–59; BMI 19.5; BMI 18.9
--- NOTE | 2024-12-22 12:36 | ED.GENMED ---
History of Present Illness
<Kemal Heredia PA-C - Last Filed: 12/22/24 14:21>
General
Chief Complaint: Blood Pressure Problem
Source: patient
Exam Limitations: none
Time Seen by Provider: 12/22/24 12:20
History of Present Illness
History of Present Illness:
69-year-old female presents in referral from [place] greeting card writer. She was due to see the greeting card writer today as she has been getting abnormal blood work as an outpatient. At the end of October, she had a volvulus and had colon resection with 3
anastomosis at that time. Since that her blood counts have not been right. And of late, she notes lightheadedness and fatigue. She is not anticoagulated. She denies any dark or tarry stools. She denies abdominal pain or chest pain.
Past History
<Kemal Heredia PA-C - Last Filed: 12/22/24 14:21>
Past History
ED Past Medical History: Hypercholesterolemia and Other (celiac)
ED Past Surgical History: Cholecystectomy and Orthopedic
Social History
Tobacco: Smoker
Alcohol: Occasional
Drug: None
Phy Exam
<ANGEL Linn Last Filed: 12/22/24 14:21>
Physical Exam
Physical Exam:
General: Pale appearing female in no acute respiratory distress
HEENT: Normocephalic atraumatic
Heart: Regular rate and rhythm
Lungs: Clear no wheeze
Abdomen is soft nontender nondistended
Extremities: No cyanosis
Skin warm no rash
Course
<Kemal Heredia PA-C - Last Filed: 12/22/24 14:21>
Orders/Labs/Results
Orders:
Orders
12/22/24 12:54
Type+Screen Urgent
Complete Blood Count/With Diff Urgent
Comprehensive Metabolic Panel Urgent
12/22/24 13:19
Add On- LAB Urgent
Tests Added?: B12, Folate, TIBC, Ferritin, Iron
12/22/24 14:19
Blood Bank Products [* Blood Bank Products] Urgent
Blood Bank Products: *Packed RBC Leuko(PRBC's)
Quantity: 1
Transfuse Today: Yes
Reason: Anemia
Abnormal Lab Results
12/22/24
12:54
RBC 2.53 L 10^6/uL
(4.20-5.40)
Hgb 7.8 L g/dL
(12.0-16.0)
Hct 22.7 L %
(37.0-47.0)
Plt Count 118 L 10^3/uL
(130-400)
MPV 11.1 H fL
(7.4-10.4)
Sodium 127 L mmol/L
(135-145)
Carbon Dioxide 19 L mmol/L
(22-30)
Glucose 128 H mg/dl
(70-99)
AST 77 H U/L
(14-36)
ALT 54 H U/L
(0-35)
Alkaline Phosphatase 157 H U/L
(38-126)
Total Protein 6.2 L g/dl
(6.3-8.2)
Albumin 3.3 L g/dl
(3.5-5.0)
12/22/24 12:54
12/22/24 12:54
Vital Signs
Initial and Last Documented VS:
Initial Vital Signs
Temp Pulse Resp BP Pulse Ox
98.6 F 90 18 120/59 98
12/22/24 12:06 12/22/24 12:06 12/22/24 12:06 12/22/24 12:06 12/22/24 12:06
Last Documented Vital Signs
Temp Pulse Resp BP Pulse Ox
98.6 F 90 18 120/59 98
12/22/24 12:06 12/22/24 12:06 12/22/24 12:06 12/22/24 12:06 12/22/24 12:39
<Payton Ritter MD - Last Filed: 12/22/24 14:08>
Orders/Labs/Results
Orders:
Orders
12/22/24 12:54
Type+Screen Urgent
Complete Blood Count/With Diff Urgent
Comprehensive Metabolic Panel Urgent
12/22/24 13:19
Add On- LAB Urgent
Tests Added?: B12, Folate, TIBC, Ferritin, Iron
12/22/24 14:19
Blood Bank Products [* Blood Bank Products] Urgent
Blood Bank Products: *Packed RBC Leuko(PRBC's)
Quantity: 1
Transfuse Today: Yes
Reason: Anemia
Abnormal Lab Results
12/22/24
12:54
RBC 2.53 L 10^6/uL
(4.20-5.40)
Hgb 7.8 L g/dL
(12.0-16.0)
Hct 22.7 L %
(37.0-47.0)
Plt Count 118 L 10^3/uL
(130-400)
MPV 11.1 H fL
(7.4-10.4)
Sodium 127 L mmol/L
(135-145)
Carbon Dioxide 19 L mmol/L
(22-30)
Glucose 128 H mg/dl
(70-99)
AST 77 H U/L
(14-36)
ALT 54 H U/L
(0-35)
Alkaline Phosphatase 157 H U/L
(38-126)
Total Protein 6.2 L g/dl
(6.3-8.2)
Albumin 3.3 L g/dl
(3.5-5.0)
12/22/24 12:54
12/22/24 12:54
Vital Signs
Initial and Last Documented VS:
Initial Vital Signs
Temp Pulse Resp BP Pulse Ox
98.6 F 90 18 120/59 98
12/22/24 12:06 12/22/24 12:06 12/22/24 12:06 12/22/24 12:06 12/22/24 12:06
Last Documented Vital Signs
Temp Pulse Resp BP Pulse Ox
98.6 F 90 18 120/59 98
12/22/24 12:06 12/22/24 12:06 12/22/24 12:06 12/22/24 12:06 12/22/24 12:39
<Kemal Heredia PA-C - Last Filed: 12/22/24 14:21>
MDM/Problems Addressed
Differential Diagnosis Includes:
Patient with fatigue lightheadedness and low blood pressure readings at the greeting card writer office. Recent history of anemia and abnormal blood work. Will check labs. Blood pressure at triage normal tensive.
<Kemal Heredia PA-C - Last Filed: 12/22/24 14:21>
*Pulse Oximetry
SaO2: 98
Oxygen Mode of Delivery: Room air
Patient hypoxic: no
*Critical Care Note
Total Time (30-74mins, 75-104mins- exclusive of procedures): Not Applicable
<ANGEL Linn Last Filed: 12/22/24 14:21>
Update Note
Update Note:
Hemoglobin today 7.8. I spoke with the greeting card writer that she saw in the office today. 4 days ago, December 19 hemoglobin was 9.9. She is dropped 2 g in 4 days. Rectal exam was performed with female correspondence renew clerk in the room. Stool is brown in color
heme-negative. Consent was signed for blood transfusion did order 1 unit of packed red blood cells for symptomatic anemia and will admit to hospital
ED Attending Note
<Kemal Heredia PA-C - Last Filed: 12/22/24 14:21>
-
Portions of this chart may have been created with voice recognition software.� Occasional wrong word or��sound alike� substitutions may have occurred due to the inherent limitations of voice recognition software.
<Payton Ritter MD - Last Filed: 12/22/24 14:08>
ED Attending Note
Patient seen and examined by attending physician: Yes
I performed the substantive portion of visit, reviewed & personally made and approve the management plan that is documented in note by myself or KHOI.: Yes
ED Attending Note:
Patient appears pale. Her lungs are clear. Abdomen is soft throughout. Patient understands that she will be admitted to the hospital and explains that she has not been feeling well over the last week. She describes lightheadedness and feeling
fatigued. She reports at times she feels she is going to pass out.
Discharge Plan
Departure
Patient Disposition: Admit
Date of Disposition: 12/22/24
Time of Disposition: 14:20
Presentation/result/management discussed w/ accepting MD/DO: Hospitalist
Patient with high blood pressure during this ER visit?: No
Discharge Problem:
Symptomatic anemia
Prescriptions:
No Action
rosuvastatin [Crestor] 10 mg Tablet
10 mg PO DAILY
therapeutic multivitamin Tablet
1 tab PO DAILY
calcium carbonate [Tums] 200 mg calcium (500 mg) Tablet,Chewable
400 mg PO DAILYPRN PRN (Reason: gerd)
calcium carbonate-vitamin D3 [Calcium 500 + D] 500 mg-10 mcg (400 unit) Tablet
1 tab PO DAILY
Hair, Skin and Nails (biotin) 10,000 mcg Tablet,Chewable
10,000 mcg PO DAILY
Referrals:
iSd Uribe DO [Family Provider, Family Practice]
Interventions
Interventions:
*Risk Screen - Suicide Last Done: 12/22/24 12:06
*General Assessment Last Done: 12/22/24 12:06
*Neglect/Abuse Screening Last Done: 12/22/24 12:44
*ED- Fall Risk Assessment Last Done: 12/22/24 12:44
*ED COVID-19 Vaccine History Last Done: 12/22/24 12:06
ED- Cardiac Assessment Last Done: 12/22/24 13:02
ED- Neurological Assessment Last Done: 12/22/24 13:02
ED- Pulmonary Assessment Last Done: 12/22/24 13:02
Discharge Date and Time
Print Language: ROMANIAN
[2024-12-22 13:10] LABS: Hematocrit 22.7 % (37.0-47.0); Hemoglobin 7.8 g/dL (12.0-16.0); Mean Corp Hgb Conc. 34.4 g/dL (33.0-37.0); Mean Corpuscular Volume 89.7 fL (81.0-99.0); Platelet Count 118 10^3/uL (130-400); Red Cell Dist. Width 14.1 % (11.5-14.5)
[2024-12-22 13:34] LABS: ALT (SGPT) 54 U/L (0-35); AST (SGOT) 77 U/L (14-36); Albumin 3.3 g/dl (3.5-5.0); Alkaline Phosphatase 157 U/L (38-126); Blood Urea Nitrogen 11 mg/dl (7-17); Calcium 8.5 mg/dl (8.4-10.2); Carbon Dioxide 19 mmol/L (22-30); Chloride 100 mmol/L (98-107); Estimated Creatinine Clearance 80 ml/min; Glucose 128 mg/dl (70-99); Potassium 3.5 mmol/L (3.5-5.1); Sodium 127 mmol/L (135-145); Total Protein 6.2 g/dl (6.3-8.2); eGFR > 60.00
--- NOTE | 2024-12-22 14:49 | HPS.HSE ---
Family Physician
-
Family Physician: Sid Uribe
Chief Complaint
-
Weakness
History of Present Illness
Patient is a 69 y/o female past medical history of hyperlipidemia and recent hospitalization in early November for cecal volvulus requiring open right hemicolectomy who presents with weakness and persistent anemia. Patient reports her hemoglobin has
been low since her discharge on November 25. She saw a mail messenger contractor today who noted she was hypotensive in the office and sent her to the emergency department for evaluation. Patient reports since last Thursday she has been feeling worse with more
weakness and some lightheadedness. She denies any black or bloody stool. Patient reports drinking two cups of coffee, leslie miya and juice but about 48 ounces of water per day. She denies chest pain, palpitations, or lower extremtity edema.
Medical History
Past Medical History
Past Medical History: Reports Other
Additional Past Medical History:
Hyperlipidemia
Past Surgical History: Reports Other
Additional Past Surgical History:
Right Hemicolectomy for Cecal Volvulus
Cholecystectomy
Right Wrist Surgery
Right Ankle Surgery
Social History
Tobacco: Smoker (Previously 1PPD now smoking about 3-5 cigarettes per day)
Alcohol: Occasional
Family History
Family History: Not pertinent
Allergies / Home Medications
Allergies reflects when Allergies were last updated in [facility].
Home Medications with original date entered in [facility]
Allergy/Medication List:
Allergies
Allergy/AdvReac Type Severity Reaction Status Date / Time
Penicillins Allergy Unknown Verified 12/22/24 12:12
Home Medications
calcium 500 mg (as carbonate)-vitamin D3 10 mcg (400 unit) tablet (Calcium 500 + D) 1 tab PO DAILY Supplement 11/18/24
rosuvastatin 10 mg tablet (Crestor) 10 mg PO DAILY High Cholesterol 11/18/24
therapeutic multivitamin 1 tab PO DAILY Supplement 11/18/24
Review of Systems
-
A 12 point ROS was completed and negative except as noted: Yes
Constitutional: Denies Fever
Respiratory: Denies Cough
Cardiac: Denies Chest Pain
Abdomen/GI: Denies Abdominal Pain, Nausea, Vomiting, Diarrhea, Bloody Stools or Black Stools
Physical Exam
Vital Signs
Vital Signs
Temp Pulse Resp BP Pulse Ox
98.6 F 90 18 120/59 98
12/22/24 12:06 12/22/24 12:06 12/22/24 12:06 12/22/24 12:06 12/22/24 12:39
Physical Exam
General: Comfortable and Conversant
HEENT: Anicteric and Moist mucous membranes
Respiratory: Clear and Non Labored Respirations
Cardiac: S1/S2 and Regular Rhythm; No Tachycardia
GI: Soft and Non Tender
Rectal: Hem Negative (Per ED Provider)
Musculoskeletal: No Clubbing, No Cyanosis and No Edema
Skin: Warm and Dry
Neuro: Awake, Alert, Oriented and Nonfocal/grossly intact
Psych: Calm
Laboratory Results
-
12/22/24 12:54
12/22/24 12:54
Laboratory Results
Total Bilirubin 1.1 mg/dl (0.2-1.3) 12/22/24 12:54
AST 77 U/L (14-36) H 12/22/24 12:54
ALT 54 U/L (0-35) H 12/22/24 12:54
Alkaline Phosphatase 157 U/L (38-126) H 12/22/24 12:54
Data Reviewed
-
Lab Data: Labs Reviewed by me
Old Records: Reviewed
Impression/Plan
-
Subacute Post-Op Blood Loss Anemia following Right Hemicolectomy on November 18
-Transfuse 1 unit PRBCs
-Check iron studies, vitamin b12 and folic acid
Hyponatremia
-Check serum osmo, urine osmo and urine sodium
-Start fluid restriction
Mild LFT Elevation, possibly related to hypotension
-Hold Crestor
-Recheck labs in AM
-Check Abd US in AM
Hyperlipidemia
-Hold Crestor
DVT proph: SCDs
Code Status: Full Code
--- NOTE | 2024-12-22 15:19 | W.PN.UPDATE ---
Update Note
Progress Note Update
This is an addendum to H&P written by MARY LOU Morin
I saw and examined the patient.
The TONGUE AND QUARTER STITCHER's note was reviewed and I agree with the note.
Comment:
Ms. Ceci Marquez is a 69 yo woman with hx HLD, cecal volvulus s/p colon resection 11/18/24 with post-op anemia sent to the ER by outpatient Behavioral Services Tech for drop in Hg 9.9 on 12/19 to 7.8. Patient reports feeling lightheaded and dizzy over past
several days with low blood pressure at Hematology clinic, therefore sent to the ER.
Triage VS: T 98.6, P 90, RR 18, BP 120/59, SpO2 98%
On exam patient is awake, alert, in no distress. Pale conjunctiva. CV: S1, S2, RRR; Chest clear; abdomen incision c/d/i; no pain; no LE swelling
LABS: WBC 6.2, Hg 7.8, PLT 118, Na 127, K 3.5, CO2 19, Cr 0.6, Glucose 128, Serum osmolality 265, T. Bili 1.1, AST 77, ALT 54, Alk Phos 157
subacute anemia post-op right hemicolectomy
-admit to telemetry
-ordered for 1 unit PRBC
-trend Hg this evening
-iron studies mixed inflammation and Iron deficiency; give IV iron tomorrow
-F/U B12, Folate
Hyponatremia
-patient reports significant oral hydration
-follow up urine studies
-fluid restrict
Report of dizziness/lightheadedness
-symptomatic anemia versus hyponatremia?
-monitor symptoms post transfusion and resolution of low sodium
Hypotension
-normal BP here in the ER, will continue to monitor
-receiving volume with PRBC then goal is to fluid restrict given hyponatremia, but would give fluids if BP drops
Transaminitis
-no abdominal pain
-repeat CMP tomorrow
-obtain abdominal US and hep serologies
-expand work-up if above unrevealing and liver enzymes worsen
-hold Statin
Remainder of plan per PA note
[2024-12-22 15:21] LABS: Nucleated Red Blood Cells % 0 %
[2024-12-22 15:22] LABS: Iron 30 ug/dl (37-170)
--- NOTE | 2024-12-22 15:31 | CM ---
CM reviewed chart and met with pt bedside in ED. Lives with her in 1 story home, [address].
Independent in ADLs, personal care and ambulation at baseline. NO DME in home.
No hx VN/SNF.
[address] address is [address] [place] [address]. MARY LOU Ruiz
PCP: Sid Mitchell
Pharmacy: [facility]
CM will continue to follow for discharge planning
[2024-12-22 15:32] LABS: Total Iron Binding Capacity 221 ug/dl (265-497)
[2024-12-22] MEDS: TYLENOL 650 MG PO ×2 (15:37→23:19)
[2024-12-22 16:05] LABS: Folate > 20.0 ng/ml (2.76-20); Vitamin B12 468 pg/ml (239-931)
[2024-12-22 16:19] LABS: Ferritin 1340.0 ng/ml (11.1-264.0)
[2024-12-22 17:27] LABS: Urine Character Clear (Clear)
[2024-12-22 17:30] LABS: Urine Squamous Cell 16-20 /LPF (Few)
[2024-12-22 17:31] LABS: Urine Red Blood Cell 0-2 /HPF (0-2); Urine White Cell 0-2 /HPF (0-5)
[2024-12-23 00:06] LABS: Hematocrit 24.9 % (37.0-47.0); Hemoglobin 9.1 g/dL (12.0-16.0)
[2024-12-23 07:05] LABS: Hematocrit 26.9 % (37.0-47.0); Hemoglobin 9.6 g/dL (12.0-16.0); Mean Corp Hgb Conc. 35.7 g/dL (33.0-37.0); Mean Corpuscular Volume 87.9 fL (81.0-99.0); Platelet Count 119 10^3/uL (130-400); Red Cell Dist. Width 14.5 % (11.5-14.5)
[2024-12-23 07:43] LABS: ALT (SGPT) 78 U/L (0-35); AST (SGOT) 95 U/L (14-36); Albumin 3.2 g/dl (3.5-5.0); Alkaline Phosphatase 215 U/L (38-126); Blood Urea Nitrogen 11 mg/dl (7-17); Calcium 8.8 mg/dl (8.4-10.2); Carbon Dioxide 24 mmol/L (22-30); Chloride 107 mmol/L (98-107); Estimated Creatinine Clearance 77 ml/min; Glucose 100 mg/dl (70-99); Potassium 4.2 mmol/L (3.5-5.1); Sodium 134 mmol/L (135-145); Total Protein 6.2 g/dl (6.3-8.2); eGFR > 60.00
[2024-12-23 07:55] VITALS: BP 93/54
[2024-12-23 08:14] LABS: Hepatitis B Surface Antigen Negative (Negative)
[2024-12-23 08:32] LABS: Hepatitis C Antibody Negative (Negative)
[2024-12-23 10:40] VITALS: BP 106/57; BP 111/60; BP 97/53; PULSE 68; PULSE 75; PULSE 79
--- NOTE | 2024-12-23 11:26 | W.PN.HOSP.TC ---
Today's Communication/Plan
-
Monitor vital signs and see plan
Follow fever curve, if continues to be febrile then will need further cultures and possible ID evaluation
Monitor hemoglobin
Monitor sodium
Assessment / Plan
Assessment / Plan
General: Comfortable and Conversant
HEENT: Anicteric and Moist mucous membranes
Respiratory: Clear and Non Labored Respirations
Cardiac: S1/S2 and Regular Rhythm; No Tachycardia
GI: Soft and Non Tender
Rectal: Hem Negative on admission per ED provider
Musculoskeletal: No Edema
Neuro: Awake, Alert, Oriented and Nonfocal/grossly intact
Psych: Calm
Subacute Post-Op Blood Loss Anemia following Right Hemicolectomy on November 18
- Status post 1 unit PRBC 12/22, hemoglobin now 9.6
DC further IV iron after dose today
Hyponatremia
Appears secondary to possible polydipsia
Fluid restrict
Monitor sodium
Mild LFT Elevation, possibly related to hypotension
-Hold Crestor
Abdominal ultrasound without any obstructive pathology
Acute hep panel negative
Continue to monitor LFTs
Fever 12/22/2024 could likely be secondary to blood transfusion
Continue to monitor, if continues to spike fever then will need ID evaluation and further cultures
Hyperlipidemia
-Hold Crestor
DVT proph: SCDs
Code Status: Full Code
I spent a total of 52 minutes with the patient or on the floor. More than 50% of this time involved counseling and coordination of care.
Anticipated Discharge: 24 - 48 hours
Subjective/Interval History
-
Date of Service: December 23, 2024
Still has some dizziness
Objective Data
-
Labs:
Laboratory Results
12/23/24 12/23/24 12/23/24
00:01 06:53 06:54
WBC 5.0
Hgb 9.1 L 9.6 L
Hct 24.9 L 26.9 L
Plt Count 119 L
Sodium 134 L
Potassium 4.2
Chloride 107
Carbon Dioxide 24
BUN 11
Creatinine 0.6
Glucose 100 H
Calcium 8.8
Total Bilirubin 1.1
AST 95 H
ALT 78 H
Alkaline Phosphatase 215 H
Vital Signs:
Vital Signs
Temp Pulse Resp BP Pulse Ox
98.2 F 58 16 93/54 97
12/23/24 07:55 12/23/24 07:55 12/23/24 07:55 12/23/24 07:55 12/23/24 07:55
I&O
12/22/24 12/23/24 12/24/24
06:59 06:59 06:59
Intake Total 740 / 740
Output Total 300 / 300
Balance 440 / 440
[2024-12-23] MEDS: FERRLECIT 110 MG IV (14:07)
[2024-12-23 15:49] VITALS: BP 103/53
[2024-12-23] MEDS: TYLENOL 650 MG PO (20:49)
[2024-12-23 23:42] VITALS: BP 88/57; BP 90/52; BP 93/53; PULSE 65; PULSE 78; PULSE 94
[2024-12-24 07:49] LABS: Hematocrit 26.8 % (37.0-47.0); Hemoglobin 9.5 g/dL (12.0-16.0); Mean Corp Hgb Conc. 35.4 g/dL (33.0-37.0); Mean Corpuscular Volume 88.2 fL (81.0-99.0); Platelet Count 154 10^3/uL (130-400); Red Cell Dist. Width 14.5 % (11.5-14.5)
[2024-12-24 07:50] VITALS: BP 116/60; BP 116/66; BP 99/53; PULSE 72; PULSE 84; PULSE 95
[2024-12-24 08:01] LABS: ALT (SGPT) 81 U/L (0-35); AST (SGOT) 91 U/L (14-36); Albumin 3.2 g/dl (3.5-5.0); Alkaline Phosphatase 249 U/L (38-126); Blood Urea Nitrogen 9 mg/dl (7-17); Calcium 8.6 mg/dl (8.4-10.2); Carbon Dioxide 21 mmol/L (22-30); Chloride 108 mmol/L (98-107); Estimated Creatinine Clearance 77 ml/min; Glucose 103 mg/dl (70-99); Potassium 4.8 mmol/L (3.5-5.1); Sodium 132 mmol/L (135-145); Total Protein 6.2 g/dl (6.3-8.2); eGFR > 60.00
[2024-12-24 09:27] LABS: Nucleated Red Blood Cells % 0 %
[2024-12-24 10:48] LABS: Urine Character Clear (Clear)
--- NOTE | 2024-12-24 10:55 | W.PN.HOSP.TC ---
Addendum entered and electronically signed by Jack Chance MD 12/24/24 16:37:
Pro-Juan Antonio positive. Started empiric antibiotics. Patient had another episode of fever. Now nauseous and vomiting. Check CT abdomen/pelvis given recent right colectomy. If CT abnormal then will need colorectal surgery evaluation
Original Note:
Today's Communication/Plan
-
Monitor vital signs see plan
Check blood culture
Check Pro-Juan Antonio
UA
Follow fever curve, if persistent then will need ID evaluation
Assessment / Plan
Assessment / Plan
General: Comfortable and Conversant
HEENT: Anicteric and Moist mucous membranes
Respiratory: Clear and Non Labored Respirations
Cardiac: S1/S2 and Regular Rhythm; No Tachycardia
GI: Soft and Non Tender
Rectal: Hem Negative on admission per ED provider
Musculoskeletal: No Edema
Neuro: Awake, Alert, Oriented and Nonfocal/grossly intact
Psych: Calm
Subacute Post-Op Blood Loss Anemia following Right Hemicolectomy on November 18
- Status post 1 unit PRBC 12/22, hemoglobin now 9.5
DC further IV iron after dose today
Hyponatremia
Appears secondary to possible polydipsia
Fluid restrict
Monitor sodium
Mild LFT Elevation, possibly related to hypotension
-Hold Crestor
Abdominal ultrasound without any obstructive pathology
Acute hep panel negative
Continue to monitor LFTs
Thrombocytopenia
Slowly improving
Monitor
Hypotension
improving after blood transfusion
Still on lower end, start IVF
Fever 7/3 and 12/23
Initially was thought was possibly secondary to blood transfusion however fever again 12/23. Check blood culture, UA. Denies any shortness of breath or cough
Check Pro-Juan Antonio
Continue to monitor, if continues to spike fever then will need ID evaluation and further cultures
Hyperlipidemia
-Hold Crestor
DVT proph: SCDs
Code Status: Full Code
I spent a total of 52 minutes with the patient or on the floor. More than 50% of this time involved counseling and coordination of care.
Anticipated Discharge: 24 - 48 hours
Subjective/Interval History
-
Date of Service: December 24, 2024
fever overnight
Objective Data
-
Labs:
Laboratory Results
12/24/24
06:51
WBC 4.8
Hgb 9.5 L
Hct 26.8 L
Plt Count 154 D
Sodium 132 L
Potassium 4.8
Chloride 108 H
Carbon Dioxide 21 L
BUN 9
Creatinine 0.6
Glucose 103 H
Calcium 8.6
Total Bilirubin 1.1
AST 91 H
ALT 81 H
Alkaline Phosphatase 249 H
Vital Signs:
Vital Signs
Temp Pulse Resp BP Pulse Ox
99.8 F 72 18 99/53 95
12/24/24 07:50 12/24/24 07:50 12/24/24 07:50 12/24/24 07:50 12/24/24 07:50
I&O
12/23/24 12/24/24 12/25/24
06:59 06:59 06:59
Intake Total 740 / 740 1190 / 1190
Output Total 300 / 300
Balance 440 / 440 1190 / 1190
[2024-12-24 11:38] LABS: Urine Red Blood Cell 0-2 /HPF (0-2); Urine Squamous Cell 26-30 /LPF (Few); Urine White Cell None Seen /HPF (0-5)
[2024-12-24 12:13] LABS: Procalcitonin 0.63 ng/ml (0.0-0.25)
[2024-12-24] MEDS: NSS 1000 IV (12:41)
[2024-12-24] MEDS: TYLENOL 650 MG PO (15:26)
[2024-12-24 15:30] VITALS: BP 104/54
[2024-12-24 15:44] VITALS: BP 104/54; BP 106/61; BP 113/62; PULSE 100; PULSE 70; PULSE 80
[2024-12-24] MEDS: STERILE WATER FOR INJECTION 10 ML IV ×2 (16:17→23:02)
[2024-12-24] MEDS: MAXIPIME 2000 MG IV ×2 (16:17→23:02)
[2024-12-24] MEDS: FLAGYL 500 MG 100 IV ×2 (16:26→23:02)
[2024-12-24] MEDS: ZOFRAN 4 MG IV (16:33)
--- NOTE | 2024-12-24 16:51 | PHA.VAN.IN ---
Assessment
- Assessment
Renal Function: Appears similar to baseline
Maximum Temperature: 102.4
Minimum Temperature: 98.2
Concomitant Antimicrobials: cefepime, metronidazole
AUC Dosing Plan
- Dosing Variables
Dosing Weight (kg): 55
Dosing CrCl (ml/min): 77
Vd coefficient (L/kg): 0.7
- Empiric Dosing
Initial / Loading Dose: 1250mg 12/24
Maintenance Regimen: 500mg Q12H
Estimated AUC (mcg*h/mL): 393
Estimated Peak (mcg*h/mL): 23.2
Estimated Trough (mcg/ml): 11
Estimated Half Life (H): 10.1
- Monitoring
No levels ordered at this time: Consider levels in next few days
Pharmacokinetics Vancomycin I
- -
Patient Age: 69
Patient Sex: Female
Vancomycin Day #: 1
Indication: GI
Requesting Provider: Dr. Chance
Pertinent Antimicrobial Allergies:
Penicillin
Height / Weight:
Height 5 ft 7 in
Actual Weight 54.686 kg
- Vital Signs / Lab Results
Temp Pulse Resp BP Pulse Ox
101.8 F H 70 18 104/54 98
12/24/24 15:30 12/24/24 15:30 12/24/24 15:30 12/24/24 15:30 12/24/24 15:30
Lab Results - Hematology
12/22/24 12/23/24 12/24/24
12:54 06:54 06:51
WBC 6.2 5.0 4.8
Lab Results - Chemistry
12/22/24 12/23/24 12/24/24
12:54 06:53 06:51
BUN 11 11 9
Creatinine 0.6 0.6 0.6
Estimated Creat Clear 80 77 77
Albumin 3.3 L 3.2 L 3.2 L
Lab Results - Urine
12/22/24 12/24/24
16:53 10:02
Urine Nitrite Negative
Urine Nitrite (Reflex) Negative
Ur Leukocyte Esterase Negative
Leukocyte Esterase Rfl Negative
Urine WBC 0-2
Urine WBC (Reflex) None seen
Ur Squamous Epith Cells 16-20 26-30
Urine Bacteria Few A
Urine Bacteria (Reflex) Few A
[2024-12-24] MEDS: OMNIPAQUE 50 ML PO (17:04)
--- NOTE | 2024-12-24 17:32 | PTCARENOTE ---
Received patient this am AAOx3. Pt temp 99.8 in am, 100.0 at lunch and 101.8 at 1530. Pt medicated with Tylenol. Temp 99.2 at 17:35. UA , Blood Cultures ordered an completed. Procalcitonin- 0.63. Dr. Chance made aware. Pt started on IVF at 12:40. Pt
also started on IV antibiotics as ordered. Pt had one episode of vomiting. Dr. Chance made aware, Pt medicated with Zofran IV with relief. Pt currently drinking contrast for CT scan. Made patient comfortable. Cont to assess patient status.
[2024-12-24] MEDS: VANCOCIN 275 MG IV (19:59)
[2024-12-24 23:12] VITALS: BP 110/58
[2024-12-25] MEDS: NSS 1000 IV ×2 (02:41→15:51)
[2024-12-25] MEDS: ZOFRAN 4 MG IV (05:54)
[2024-12-25] MEDS: VANCOCIN HCL 500 MG 100 IV (05:54)
[2024-12-25 06:00] VITALS: BMI 19.2
[2024-12-25 07:12] VITALS: BP 103/54; BP 89/53; BP 92/56; PULSE 78; PULSE 80
[2024-12-25 07:44] LABS: ALT (SGPT) 55 U/L (0-35); AST (SGOT) 47 U/L (14-36); Albumin 2.9 g/dl (3.5-5.0); Alkaline Phosphatase 204 U/L (38-126); Calcium 8.3 mg/dl (8.4-10.2); Carbon Dioxide 26 mmol/L (22-30); Chloride 110 mmol/L (98-107); Glucose 114 mg/dl (70-99); Potassium 4.4 mmol/L (3.5-5.1); Sodium 137 mmol/L (135-145); Total Protein 5.7 g/dl (6.3-8.2)
[2024-12-25 07:53] LABS: Blood Urea Nitrogen 7 mg/dl (7-17); Estimated Creatinine Clearance 67 ml/min; eGFR > 60.00
[2024-12-25] MEDS: STERILE WATER FOR INJECTION 10 ML IV ×3 (08:39→23:28)
[2024-12-25] MEDS: MAXIPIME 2000 MG IV ×3 (08:39→23:28)
[2024-12-25 08:40] LABS: Hematocrit 23.8 % (37.0-47.0); Hemoglobin 8.2 g/dL (12.0-16.0); Mean Corp Hgb Conc. 34.5 g/dL (33.0-37.0); Mean Corpuscular Volume 90.2 fL (81.0-99.0); Platelet Count 174 10^3/uL (130-400); Red Cell Dist. Width 14.7 % (11.5-14.5)
[2024-12-25] MEDS: FLAGYL 500 MG 100 IV ×3 (08:40→23:29)
--- NOTE | 2024-12-25 08:43 | PHA.VAN.FU ---
Vancomycin Assessment / Plan
- Assessment
Renal Function: Stable
In the past 24 hrs, patient has been: Febrile
Concomitant Antimicrobials: cefepime, metronidazole
- Dosing Plan
Adjust Regimen to: Vanc 750mg Q12H starting at 1800
New Regimen Predicts: AUC (536), Peak (31), Trough (15)
- Monitoring Plan
No level(s) ordered at this time: consider levels in next few days
- Follow Up
Pharmacy will continue to follow.
Vancomycin Follow UP
- -
Patient Age: 69
Patient Sex: Female
Vancomycin Day #: 2
Indication: Gi / Intra-Abdominal
Requesting Provider: Dr. Chance
Pertinent Antimicrobial Allergies:
Penicillin - unknown
Height / Weight:
Height 5 ft 7 in
Actual Weight 55.52 kg
IBW in k
Pertinent Past Medical History: BMI ~19.2
- Vital Signs / Lab Results
Temp Pulse Resp BP Pulse Ox
99.2 F 78 16 103/54 98
12/25/24 07:12 12/25/24 07:12 12/25/24 07:12 12/25/24 07:12 12/25/24 07:12
Lab Results - Hematology
12/22/24 12/23/24 12/24/24
12:54 06:54 06:51
WBC 6.2 5.0 4.8
12/25/24
06:44
WBC 4.0 L
Lab Results - Chemistry
12/22/24 12/23/24 12/24/24
12:54 06:53 06:51
BUN 11 11 9
Creatinine 0.6 0.6 0.6
Estimated Creat Clear 80 77 77
Albumin 3.3 L 3.2 L 3.2 L
12/25/24
06:44
BUN 7
Creatinine 0.7
Estimated Creat Clear 67
Albumin 2.9 L
Lab Results - Urine
12/24/24
10:02
Urine Nitrite (Reflex) Negative
Leukocyte Esterase Rfl Negative
Ur Squamous Epith Cells -
[2024-12-25 09:28] LABS: Nucleated Red Blood Cells % 0 %
[2024-12-25] MEDS: MIRALAX 17 GRAMS PO (09:56)
[2024-12-25] MEDS: COLACE 100 MG PO ×2 (09:56→20:13)
[2024-12-25 11:12] VITALS: BP 117/59
--- NOTE | 2024-12-25 11:25 | W.PN.HOSP.TC ---
Today's Communication/Plan
-
Monitor vital signs see plan
Monitor on telemetry, check echo
Continue with antibiotics
Fluids
Assessment / Plan
Assessment / Plan
General: Comfortable and Conversant
HEENT: Anicteric and Moist mucous membranes
Respiratory: Clear and Non Labored Respirations
Cardiac: S1/S2 and Regular Rhythm; No Tachycardia
GI: Soft and Non Tender
Rectal: Hem Negative on admission per ED provider
Musculoskeletal: No Edema
Neuro: Awake, Alert, Oriented and Nonfocal/grossly intact
Psych: Calm
Subacute Post-Op Blood Loss Anemia following Right Hemicolectomy on November 18
- Status post 1 unit PRBC 12/22, hemoglobin now 8.2
Hyponatremia
Appears secondary to possible polydipsia
Fluid restrict
Monitor sodium
Mild LFT Elevation, possibly related to hypotension
-Hold Crestor
Abdominal ultrasound without any obstructive pathology
Acute hep panel negative
Continue to monitor LFTs
Thrombocytopenia
Slowly improving; per patient her platelets was high for which she has seen hematology
Monitor
Hypotension
improving after blood transfusion
Still on lower end, started IVF
Fever 7/3 and 7/4, 7/5
Given multiple febrile episodes, started empiric antibiotics
Initially was thought was possibly secondary to blood transfusion however fever again 7/4. bcx NGTD, UA wnl. Denies any shortness of breath or cough. CXR without PNA
procal noted
CT abd/pelvis without obstruction. 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 Spleen has also increased in size. Fevers could be secondary to splenic infarction
Monitor on telemetry, check echo
Continue to monitor, if continues to spike fever then will need ID evaluation and further cultures
Hyperlipidemia
-Hold Crestor
DVT proph: SCDs
Code Status: Full Code
I spent a total of 52 minutes with the patient or on the floor. More than 50% of this time involved counseling and coordination of care.
Anticipated Discharge: 24 - 48 hours
Subjective/Interval History
-
Date of Service: December 25, 2024
denies nausea
Objective Data
-
Labs:
Laboratory Results
12/25/24
06:44
WBC 4.0 L
Hgb 8.2 L
Hct 23.8 L
Plt Count 174
Sodium 137
Potassium 4.4
Chloride 110 H
Carbon Dioxide 26
BUN 7
Creatinine 0.7
Glucose 114 H
Calcium 8.3 L
Total Bilirubin 0.7
AST 47 H
ALT 55 H
Alkaline Phosphatase 204 H
Vital Signs:
Vital Signs
Temp Pulse Resp BP Pulse Ox
99.2 F 78 16 103/54 98
12/25/24 07:12 12/25/24 07:12 12/25/24 07:12 12/25/24 07:12 12/25/24 09:20
I&O
12/24/24 12/25/24 12/26/24
06:59 06:59 06:59
Intake Total 1190 / 1190 3295 / 3295 180 / 180
Balance 1190 / 1190 3295 / 3295 180 / 180
[2024-12-25 15:52] VITALS: BP 114/58
[2024-12-25] MEDS: VANCOCIN 150 IV (17:57)
[2024-12-25 19:58] VITALS: BP 108/63; BP 112/59; BP 155/54; PULSE 71; PULSE 78; PULSE 85
[2024-12-25] MEDS: TYLENOL 650 MG PO (20:13)
[2024-12-25 23:13] VITALS: BP 94/53
[2024-12-26 03:22] VITALS: BP 98/58
[2024-12-26] MEDS: VANCOCIN 150 IV (05:58)
[2024-12-26] MEDS: NSS 1000 IV (05:59)
[2024-12-26 06:00] VITALS: BMI 19.3
[2024-12-26 07:15] VITALS: BP 98/60
[2024-12-26 07:36] LABS: Hematocrit 25.7 % (37.0-47.0); Hemoglobin 8.7 g/dL (12.0-16.0); Mean Corp Hgb Conc. 33.9 g/dL (33.0-37.0); Mean Corpuscular Volume 89.9 fL (81.0-99.0); Platelet Count 188 10^3/uL (130-400); Red Cell Dist. Width 15.0 % (11.5-14.5)
[2024-12-26] MEDS: COLACE PO ×2 (07:41→19:46)
[2024-12-26] MEDS: NSS IV ×2 (07:41→12:32)
[2024-12-26] MEDS: MIRALAX PO (07:41)
[2024-12-26] MEDS: MAXIPIME 2000 MG IV ×2 (07:44→15:39)
[2024-12-26] MEDS: STERILE WATER FOR INJECTION 10 ML IV ×2 (07:45→15:39)
[2024-12-26] MEDS: FLAGYL 500 MG 100 IV ×2 (07:45→15:39)
[2024-12-26 08:01] LABS: ALT (SGPT) 47 U/L (0-35); AST (SGOT) 42 U/L (14-36); Albumin 3.0 g/dl (3.5-5.0); Alkaline Phosphatase 196 U/L (38-126); Blood Urea Nitrogen 9 mg/dl (7-17); Calcium 8.6 mg/dl (8.4-10.2); Carbon Dioxide 23 mmol/L (22-30); Chloride 116 mmol/L (98-107); Estimated Creatinine Clearance 79 ml/min; Glucose 92 mg/dl (70-99); Potassium 4.6 mmol/L (3.5-5.1); Sodium 141 mmol/L (135-145); Total Protein 6.0 g/dl (6.3-8.2); eGFR > 60.00
[2024-12-26 08:34] LABS: Nucleated Red Blood Cells % 0 %
[2024-12-26] MEDS: ZOFRAN 4 MG IV (08:56)
--- NOTE | 2024-12-26 10:27 | CM ---
Patient seen at bedside
cont on IV antibiotics, echo ordered
PLAN: home, no needs anticipated, CM to continue to follow
--- NOTE | 2024-12-26 11:08 | W.PN.HOSP.TC ---
Today's Communication/Plan
-
Monitor vital signs and see plan
Follow fever curve
Continue with empiric antibiotics
ID evaluation
Echo
Assessment / Plan
Assessment / Plan
General: Comfortable and Conversant
HEENT: Anicteric and Moist mucous membranes
Respiratory: Clear and Non Labored Respirations
Cardiac: S1/S2 and Regular Rhythm; No Tachycardia
GI: Soft and Non Tender
Rectal: Hem Negative on admission per ED provider
Musculoskeletal: No Edema
Neuro: Awake, Alert, Oriented and Nonfocal/grossly intact
Psych: Calm
Subacute Post-Op Blood Loss Anemia following Right Hemicolectomy on November 18
- Status post 1 unit PRBC 12/22, hemoglobin now 8.7
Hyponatremia
Appears secondary to possible polydipsia
Fluid restrict
Monitor sodium
Persistent fever
Given multiple febrile episodes, started empiric antibiotics
Initially was thought was possibly secondary to blood transfusion however fever again 12/23. bcx NGTD, UA wnl. Denies any shortness of breath or cough. CXR without PNA
procal noted
CT abd/pelvis without obstruction. 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 Spleen has also increased in size. Fevers could be secondary to splenic infarction
Monitor on telemetry, check echo
ID consult
Mild LFT Elevation, possibly related to hypotension
-Hold Crestor
Abdominal ultrasound without any obstructive pathology
Acute hep panel negative
Continue to monitor LFTs
Thrombocytopenia
Slowly improving; per patient her platelets was high for which she has seen hematology
Monitor
Hypotension
improving after blood transfusion
Still on lower end, started IVF
Hyperlipidemia
-Hold Crestor
DVT proph: SCDs
Code Status: Full Code
I spent a total of 53 minutes with the patient or on the floor. More than 50% of this time involved counseling and coordination of care.
Anticipated Discharge: 24 - 48 hours
Subjective/Interval History
-
Date of Service: December 26, 2024
Fever overnight
Objective Data
-
Labs:
Laboratory Results
12/26/24
06:20
WBC 4.8
Hgb 8.7 L
Hct 25.7 L
Plt Count 188
Sodium 141
Potassium 4.6
Chloride 116 H
Carbon Dioxide 23
BUN 9
Creatinine 0.6
Glucose 92
Calcium 8.6
Total Bilirubin 0.9
AST 42 H
ALT 47 H
Alkaline Phosphatase 196 H
Vital Signs:
Vital Signs
Temp Pulse Resp BP Pulse Ox
97.9 F 72 20 98/60 98
12/26/24 07:15 12/26/24 07:15 12/26/24 07:15 12/26/24 07:15 12/26/24 07:15
I&O
12/25/24 12/26/24 12/27/24
06:59 06:59 06:59
Intake Total 3295 / 3295 2690 / 2690
Balance 3295 / 3295 2690 / 2690
[2024-12-26 11:30] VITALS: BP 97/55; BP 98/56; BP 99/56; PULSE 69; PULSE 74; PULSE 84
[2024-12-26 15:30] VITALS: BP 101/54; BP 118/61; BP 94/54; PULSE 71; PULSE 75; PULSE 86
--- NOTE | 2024-12-26 16:15 | PHA.VAN.FU ---
Vancomycin Assessment / Plan
- Assessment
Renal Function: Stable
WBC's are: Stable
Concomitant Antimicrobials: cefepime, metronidazole
- Dosing Plan
Continue: Vanc 750mg Q12H
- Monitoring Plan
No level(s) ordered at this time: consider levels in next few days
- Follow Up
Pharmacy will continue to follow.
Vancomycin Follow UP
- -
Patient Age: 69
Patient Sex: Female
Vancomycin Day #: 3
Indication: Gi / Intra-Abdominal
Requesting Provider: Dr. Chance
Pertinent Antimicrobial Allergies:
Penicillin - unknown
Height / Weight:
Height 5 ft 7 in
Actual Weight 55.82 kg
IBW in k
Pertinent Past Medical History: BMI ~19.2
- Vital Signs / Lab Results
Temp Pulse Resp BP Pulse Ox
98.2 F 69 16 98/56 100
12/26/24 11:30 12/26/24 11:30 12/26/24 11:30 12/26/24 11:30 12/26/24 11:30
Lab Results - Hematology
12/24/24 12/25/24 12/26/24
06:51 06:44 06:20
WBC 4.8 4.0 L 4.8
Lab Results - Chemistry
12/24/24 12/25/24 12/26/24
06:51 06:44 06:20
BUN 9 7 9
Creatinine 0.6 0.7 0.6
Estimated Creat Clear 77 67 79
Albumin 3.2 L 2.9 L 3.0 L
Microbiology Results
12/24/24 10:14 Blood Culture - Preliminary
Blood/Venous No Growth in 48 hours- Final report to follow
12/24/24 09:40 Blood Culture - Preliminary
Blood/Venous No Growth in 48 hours- Final report to follow
--- NOTE | 2024-12-26 16:50 | CON.ID ---
Consultation
-
Date/Time Consultation Requested: December 26, 2024 0831
Date/Time Consultation Performed: December 26, 2024 1650
Requesting Provider: Dr. Jack Chance
Performing Provider: Dr. Katy Hammonds
Reason for Consultation: Fever
Chief Complaint / Past History
Chief Complaint
Anemia
History of Present Illness
69-year-old female with with recent hospitalization 11/18 -11/25 due to cecal volvulus and underwent right colectomy and resection small portion of fallopian tube on November 18, 2024. Postop she did have significant anemia possibly from low-grade
anastomotic bleeding requiring red blood cell transfusions. Outpatient she had follow-up blood work and noted to have elevated platelet count as well as decreasing hemoglobin. She was referred to the teaching fellow who noted patient was hypotensive
and symptomatic with weakness/lightheadedness and therefore she was sent to the ER and December 22. Hemoglobin was 7.8 requiring packed red blood cell transfusion. Platelet count low on admission. AST/ALT elevated. Initially she was afebrile.
However later in the evening of December 22, she spiked a temperature 102.1. She continued to have fevers daily and therefore blood transfusion fever ruled out. She was started on empiric vancomycin, cefepime, metronidazole. CT of the abdomen and
pelvis showed splenic infarcts. Patient states she started with worsening fatigue and weakness about a week ago. She attended a wedding in the [facility]. And after the event, she noted headaches, lightheadedness, weakness, fatigue. No fever or
chills before hospitalization. She is not aware of any tick exposure. She does live in a [facility] location. No ill contacts. No cough shortness of breath. No chest pain. No nausea or vomiting. Has loose stools since start of
antibiotics. No dysuria or flank pain. No rash.
Past History
Additional Past Medical History:
Hyperlipidemia
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
Cholecystectomy
Right wrist surgery
Right ankle surgery
Allergy History:
Penicillins Allergy (Verified 12/22/24 12:12)
Unknown
Medications Reviewed: Yes
Current Antibiotics:
Cefepime
Metronidazole
s/p Vancomycin
Social History
Tobacco: Smoker
Alcohol: Occasional
Drug: None
Personal:
Living: With Family
Family History
Family History: Not Pertinent
Review of Systems
Review of Systems
General: Fever, Chills and Change in Appetite
HEENT: Headache; Negative Sinus Problems or Pharyngitis
Cardiovascular: Negative Chest Pain
Respiratory: Negative Dyspnea or Cough
Gasteroenterology: Negative Nausea or Vomiting
Genital / Urological: Negative Dysuria or Flank Pain
Endocrine: Weakness and Fatigue
Skin / Hair / Nails: Negative Rash
Neurological: Dizziness
All systems: All other systems were reviewed and were negative
Vital Signs
Temp Pulse Resp BP Pulse Ox
98.5 F 71 16 94/54 96
12/26/24 15:30 12/26/24 15:30 12/26/24 15:30 12/26/24 15:30 12/26/24 15:30
Physical Exam
Physical Exam
Constitutional: No Acute Distress and Comfortable
Head: Other (No frontal or maxillary sinus tenderness)
Eyes: No Conjunctival Hemorrhage and Sclera Anicteric
Cardiovascular: Regular Rate and S1/S2
Pulmonary: Clear
Gastrointestinal: Soft, Non Tender, Non Distended and Normal Bowel Sounds
Genito-Urinary: Negative CVA Tenderness
Extremities: Negative Edema
Musculoskeletal: Negative Joint Swelling or Joint Effusion
Neurological: AO x 3; Negative Meningeal Signs
Lab / Diagnostic Study Results
12/26/24 06:20
12/26/24 06:20
Abs Immat Gran (auto) 0.0 10^3/uL (0-0.05) 12/26/24 06:20
Absolute Neuts (auto) 2.3 10^3/uL (1.4-6.5) 12/26/24 06:20
Absolute Lymphs (auto) 1.5 10^3/uL (1.2-3.4) 12/26/24 06:20
Absolute Monos (auto) 0.8 10^3/uL (0.1-0.6) H 12/26/24 06:20
Absolute Basos (auto) 0.1 10^3/uL (0-0.2) 12/26/24 06:20
Immature Gran % 0.8 % (0-0.5) H 12/26/24 06:20
Neutrophils % 47.4 % (42.2-75.2) 12/26/24 06:20
Lymphocytes % 31.6 % (20.5-51.1) 12/26/24 06:20
Monocytes % 16.4 % (1.7-9.3) H 12/26/24 06:20
Eosinophils % 2.5 % (0-6) 12/26/24 06:20
Basophils % 1.3 % (0-2) 12/26/24 06:20
Procalcitonin 0.63 ng/ml (0.0-0.25) H 12/24/24 11:31
Urine WBC 0-2 /HPF (0-5) 12/22/24 16:53
Ur Squamous Epith Cells 26-30 /LPF (Few) 12/24/24 10:02
Microbiology Results
Micro:
12/24/24 10:14 Blood Culture - Preliminary
Blood/Venous No Growth in 48 hours- Final report to follow
12/24/24 09:40 Blood Culture - Preliminary
Blood/Venous No Growth in 48 hours- Final report to follow
12/23/24 CXR: There is no sonographic evidence of cholelithiasis, acute cholecystitis or biliary duct dilation.
12/24/24 CT a/p: Several band-shaped foci of decreased enhancement within the spleen, characteristic appearance for splenic infarctions. Of note, the spleen has increased in size since prior CT, being relatively small on the prior CT scan. Status post
right hemicolectomy. No evidence for bowel obstruction. Mild dilation of small bowel loops, which may be on the basis of a moderate to large amount of stool present within the colon. No evidence for significant bowel wall thickening.
12/24/24 CXR: The lungs appear clear radiographically.
Assessment / Plan
# Fevers
# Anemia
# Thrombocytopenia
# Elevated AST and ALT
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
- Blood cultures x 2 negative to date
- Urine analysis negative
- Chest x-ray clear lungs
- TTE result pending
- Will workup for tickborne disease. Check blood parasite in the a.m. Of ntoe patient received PRBC transfusion which may dilute Babesia smear.
Ordered Anaplasma, Erhlichia, Babesia, blood PCR in the a.m.
Can check Lyme screen
- Discontinue vancomycin, cefepime, metronidazole for now
-Follow temps and CBC.
[2024-12-26] MEDS: LOVENOX 40 MG SC (17:17)
[2024-12-26] MEDS: VANCOCIN IV (17:18)
[2024-12-26 19:35] VITALS: BP 106/56; BP 96/60; BP 97/53; PULSE 84; PULSE 85; PULSE 97
[2024-12-26 23:37] VITALS: BP 99/53
[2024-12-27 03:18] VITALS: BP 97/55
[2024-12-27 07:05] VITALS: BP 103/56
[2024-12-27] MEDS: MIRALAX PO (07:26)
[2024-12-27] MEDS: COLACE PO ×2 (07:26→19:44)
[2024-12-27 08:31] LABS: ALT (SGPT) 39 U/L (0-35); AST (SGOT) 34 U/L (14-36); Albumin 3.2 g/dl (3.5-5.0); Alkaline Phosphatase 197 U/L (38-126); Blood Urea Nitrogen 6 mg/dl (7-17); Calcium 8.7 mg/dl (8.4-10.2); Carbon Dioxide 24 mmol/L (22-30); Chloride 114 mmol/L (98-107); Estimated Creatinine Clearance 68 ml/min; Glucose 104 mg/dl (70-99); Hematocrit 26.5 % (37.0-47.0); Hemoglobin 8.8 g/dL (12.0-16.0); Mean Corp Hgb Conc. 33.2 g/dL (33.0-37.0); Mean Corpuscular Volume 92.7 fL (81.0-99.0); Platelet Count 212 10^3/uL (130-400); Potassium 4.2 mmol/L (3.5-5.1); Red Cell Dist. Width 15.3 % (11.5-14.5); Sodium 142 mmol/L (135-145); Total Protein 6.1 g/dl (6.3-8.2); eGFR > 60.00
[2024-12-27 09:09] LABS: Nucleated Red Blood Cells % 0 %
[2024-12-27] MEDS: MEPRON SUSPENSION 750 MG PO ×2 (10:33→19:44)
[2024-12-27] MEDS: ZITHROMAX 500 MG PO (10:33)
[2024-12-27 11:05] VITALS: BP 107/61; BP 95/58; PULSE 71; PULSE 80
--- NOTE | 2024-12-27 11:33 | W.PN.HOSP.TC ---
Today's Communication/Plan
-
monitor vitals
see plan
blood smear + for babesia
cw azithromycin and atovoqone per ID
follow fever curve
monitor hgb
Assessment / Plan
Assessment / Plan
General: Comfortable and Conversant
HEENT: Anicteric and Moist mucous membranes
Respiratory: Clear and Non Labored Respirations
Cardiac: S1/S2 and Regular Rhythm; No Tachycardia
GI: Soft and Non Tender
Rectal: Hem Negative on admission per ED provider
Musculoskeletal: No Edema
Neuro: Awake, Alert, Oriented and Nonfocal/grossly intact
Psych: Calm
Subacute Post-Op Blood Loss Anemia following Right Hemicolectomy on November 18
- Status post 1 unit PRBC 12/22, hemoglobin now 8.7
Hyponatremia
Appears secondary to possible polydipsia
Fluid restrict
Monitor sodium
Persistent fever likely secondary to babesiosis
This could explain majority of her symptoms with headache, hypotension, possible acute hemolytic anemia
Given multiple febrile episodes, started empiric antibiotics, now on azithromycin, atovaquone
Initially was thought was possibly secondary to blood transfusion however fever again 12/23. bcx NGTD, UA wnl. Denies any shortness of breath or cough. CXR without PNA
procal noted
CT abd/pelvis without obstruction. 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 Spleen has also increased in size. Fevers could be secondary to splenic infarction
Monitor on telemetry, echo 12/27 without any vegetation
ID following
Parasite smear positive for Babesia, Lyme pending
Mild LFT Elevation, possibly related to hypotension
Could also be elevated given babesiosis
-Hold Crestor
Abdominal ultrasound without any obstructive pathology
Acute hep panel negative
Continue to monitor LFTs
Thrombocytopenia
Slowly improving; per patient her platelets was high for which she has seen hematology
Monitor
Hypotension
improving after blood transfusion
Still on lower end, started IVF
Hyperlipidemia
-Hold Crestor
DVT proph: SCDs
Code Status: Full Code
I spent a total of 52 minutes with the patient or on the floor. More than 50% of this time involved counseling and coordination of care.
Anticipated Discharge: Within 24 hours
Subjective/Interval History
-
Date of Service: December 27, 2024
denies pain
Objective Data
-
Labs:
Laboratory Results
12/27/24
07:08
WBC 5.4
Hgb 8.8 L
Hct 26.5 L
Plt Count 212
Sodium 142
Potassium 4.2
Chloride 114 H
Carbon Dioxide 24
BUN 6 L
Creatinine 0.7
Glucose 104 H
Calcium 8.7
Total Bilirubin 0.7
AST 34
ALT 39 H
Alkaline Phosphatase 197 H
Vital Signs:
Vital Signs
Temp Pulse Resp BP Pulse Ox
98.1 F 68 20 103/56 98
12/27/24 07:05 12/27/24 07:05 12/27/24 07:05 12/27/24 07:05 12/27/24 07:05
I&O
12/26/24 12/27/24 12/28/24
06:59 06:59 06:59
Intake Total 2690 / 2690 3340 / 3340
Balance 2690 / 2690 3340 / 3340
--- NOTE | 2024-12-27 11:38 | W.PN.ID1 ---
Date of Service
Date of Service: December 27, 2024
Today's Communication
Start atovaquone, azithromycin and doxy.
Assessment / Plan
# Babesiosis
# Fevers
# Anemia
# Thrombocytopenia
# Splenic infarcts
# Elevated AST and ALT
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
- Blood cultures x 2 negative to date
- Urine analysis negative
- Chest x-ray clear lungs
- TTE normal
- Parasite smear: 0.8% babesia
Can explain splenic infarcts, anemia, thrombocytopenia
-Anaplasma, Erhlichia, blood PCR pending
- Lyme screen pending
- Start atovaquone 750mg po bid and azithromycin 500mg po daily for Babesia.
- Also add empiric doxycycline 100mg po bid for possible co-infection with other tick-borne illness
- Repeat parasite smear on 12/29.
-Follow temps and CBC.
Chief Complaint
-: Fever
Subjective / Review of Systems
Feels same
Vital Signs / Physical Exam
Vital Signs
Vital Signs
Temp Pulse Resp BP Pulse Ox
98.1 F 68 20 103/56 98
12/27/24 07:05 12/27/24 07:05 12/27/24 07:05 12/27/24 07:05 12/27/24 07:05
Physical Exam
Constitutional: No Acute Distress
Cardiovascular: Regular Rate and S1/S2
Pulmonary: Clear
Gastrointestinal: Soft, Non Tender, Non Distended and Normal Bowel Sounds
Genito-Urinary: Negative CVA Tenderness
Neurological: AO x 3
Objective Data
Lab Data
Lab Results
12/27/24 07:08
12/27/24 07:08
Estimated Creat Clear 68 ml/min 12/27/24 07:08
Total Bilirubin 0.7 mg/dl (0.2-1.3) 12/27/24 07:08
AST 34 U/L (14-36) 12/27/24 07:08
ALT 39 U/L (0-35) H 12/27/24 07:08
Alkaline Phosphatase 197 U/L (38-126) H 12/27/24 07:08
Most recent labs reviewed.
Micro Results:
12/24/24 10:14 Blood Culture - Preliminary
Blood/Venous No Growth in 72 hours- Final report to follow
12/24/24 09:40 Blood Culture - Preliminary
Blood/Venous No Growth in 72 hours- Final report to follow
12/27/24 07:08 Blood Parasites Smear - Final
Blood/Venous Babesia species
12/23/24 CXR: There is no sonographic evidence of cholelithiasis, acute cholecystitis or biliary duct dilation.
12/24/24 CT a/p: Several band-shaped foci of decreased enhancement within the spleen, characteristic appearance for splenic infarctions. Of note, the spleen has increased in size since prior CT, being relatively small on the prior CT scan. Status post
right hemicolectomy. No evidence for bowel obstruction. Mild dilation of small bowel loops, which may be on the basis of a moderate to large amount of stool present within the colon. No evidence for significant bowel wall thickening.
12/24/24 CXR: The lungs appear clear radiographically.
Care Review
Plan reviewed with: Nurse
[2024-12-27] MEDS: VIBRAMYCIN 100 MG PO ×2 (12:11→19:44)
[2024-12-27] MEDS: ZOFRAN 4 MG IV (12:54)
[2024-12-27 15:05] VITALS: BP 110/56
[2024-12-27] MEDS: LOVENOX 40 MG SC (17:03)
[2024-12-27 23:53] VITALS: BP 103/55; BP 109/65; BP 115/61; PULSE 106; PULSE 83; PULSE 89
[2024-12-28 07:26] LABS: Hematocrit 24.4 % (37.0-47.0); Hemoglobin 8.2 g/dL (12.0-16.0); Mean Corp Hgb Conc. 33.6 g/dL (33.0-37.0); Mean Corpuscular Volume 90.4 fL (81.0-99.0); Platelet Count 229 10^3/uL (130-400); Red Cell Dist. Width 15.3 % (11.5-14.5)
[2024-12-28 07:44] LABS: ALT (SGPT) 32 U/L (0-35); AST (SGOT) 37 U/L (14-36); Albumin 3.0 g/dl (3.5-5.0); Alkaline Phosphatase 164 U/L (38-126); Blood Urea Nitrogen 8 mg/dl (7-17); Calcium 8.6 mg/dl (8.4-10.2); Carbon Dioxide 23 mmol/L (22-30); Chloride 109 mmol/L (98-107); Estimated Creatinine Clearance 68 ml/min; Glucose 92 mg/dl (70-99); Potassium 4.4 mmol/L (3.5-5.1); Sodium 136 mmol/L (135-145); Total Protein 5.9 g/dl (6.3-8.2); eGFR > 60.00
[2024-12-28 07:58] VITALS: BP 90/54
[2024-12-28] MEDS: MIRALAX PO (08:06)
[2024-12-28] MEDS: COLACE PO (08:06)
[2024-12-28] MEDS: VIBRAMYCIN 100 MG PO (08:07)
[2024-12-28] MEDS: ZITHROMAX 500 MG PO (08:07)
[2024-12-28] MEDS: MEPRON SUSPENSION 750 MG PO (08:07)
--- NOTE | 2024-12-28 09:01 | W.PN.ID1 ---
Date of Service
Date of Service: December 28, 2024
Today's Communication
DC planning.
See below
Assessment / Plan
# Babesiosis
# Fevers resolved
# Anemia
# Thrombocytopenia resolved
# Splenic infarcts
# Elevated AST and ALT improving
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
- Blood cultures x 2 negative to date
- Urine analysis negative
- Chest x-ray clear lungs
- TTE normal
- Parasite smear: 0.8% babesia
Can explain splenic infarcts, anemia, thrombocytopenia
-Anaplasma, Erhlichia, blood PCR pending
- Lyme screen pending
- Continue atovaquone 750mg po bid and azithromycin 500mg po daily x 10d through 01/05/25 for Babesia.
- Continue empiric doxycycline 100mg po bid xd 10d through 01/05/25 for possible co-infection with other tick-borne illness
-Repeat parasite smear, cbcp, cmp on 01 03 or 01/04 before end of therapy.
Labscripts electronically sent to [facility]
I will call her with results.
Chief Complaint
-: Fever
Subjective / Review of Systems
Feels much improved. Wants to go home today.
Vital Signs / Physical Exam
Vital Signs
Vital Signs
Temp Pulse Resp BP Pulse Ox
99.1 F 70 16 90/54 98
12/28/24 07:58 12/28/24 07:58 12/28/24 07:58 12/28/24 07:58 12/28/24 08:03
Physical Exam
Constitutional: No Acute Distress and Comfortable
Cardiovascular: Regular Rate and S1/S2
Pulmonary: Clear
Gastrointestinal: Soft, Non Tender, Non Distended, Normal Bowel Sounds and Decreased Bowel Sounds
Extremities: Negative Edema
Neurological: Awake, Alert and AO x 3
Objective Data
Lab Data
Lab Results
12/28/24 06:39
12/28/24 06:39
Estimated Creat Clear 68 ml/min 12/28/24 06:39
Total Bilirubin 0.6 mg/dl (0.2-1.3) 12/28/24 06:39
AST 37 U/L (14-36) H 12/28/24 06:39
ALT 32 U/L (0-35) 12/28/24 06:39
Alkaline Phosphatase 164 U/L (38-126) H 12/28/24 06:39
Most recent labs reviewed.
Micro Results:
12/24/24 10:14 Blood Culture - Preliminary
Blood/Venous No Growth in 72 hours- Final report to follow
12/24/24 09:40 Blood Culture - Preliminary
Blood/Venous No Growth in 72 hours- Final report to follow
12/27/24 07:08 Blood Parasites Smear - Final
Blood/Venous Babesia species
12/23/24 CXR: There is no sonographic evidence of cholelithiasis, acute cholecystitis or biliary duct dilation.
12/24/24 CT a/p: Several band-shaped foci of decreased enhancement within the spleen, characteristic appearance for splenic infarctions. Of note, the spleen has increased in size since prior CT, being relatively small on the prior CT scan. Status post
right hemicolectomy. No evidence for bowel obstruction. Mild dilation of small bowel loops, which may be on the basis of a moderate to large amount of stool present within the colon. No evidence for significant bowel wall thickening.
12/24/24 CXR: The lungs appear clear radiographically.
Care Review
Plan reviewed with: Physician (Dr. Chance)
--- NOTE | 2024-12-28 10:05 | W.PN.HOSP.TC ---
Today's Communication/Plan
-
Monitor vital signs see plan
Continue with antibiotics
Discussed with ID, discharged today with outpatient follow-up
Time of discharge 39 minutes
Assessment / Plan
Assessment / Plan
General: Comfortable and Conversant
HEENT: Anicteric and Moist mucous membranes
Respiratory: Clear and Non Labored Respirations
Cardiac: S1/S2 and Regular Rhythm; No Tachycardia
GI: Soft and Non Tender
Musculoskeletal: No Edema
Neuro: Awake, Alert, Oriented and Nonfocal/grossly intact
Psych: Calm
Subacute Post-Op Blood Loss Anemia following Right Hemicolectomy on November 18
- Status post 1 unit PRBC 12/22, hemoglobin now 8.2
Hyponatremia
Appears secondary to possible polydipsia
Monitor sodium; resolved
Persistent fever likely secondary to babesiosis
This could explain majority of her symptoms with headache, hypotension, possible acute hemolytic anemia
Given multiple febrile episodes, started empiric antibiotics, now on azithromycin, atovaquone
Initially was thought was possibly secondary to blood transfusion however fever again 12/23. bcx NGTD, UA wnl. Denies any shortness of breath or cough. CXR without PNA
procal noted
CT abd/pelvis without obstruction. 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 Spleen has also increased in size. Fevers could be secondary to splenic infarction
Monitor on telemetry, echo 12/27 without any vegetation
ID following
Parasite smear positive for Babesia, Lyme pending
Discussed with infectious disease, discharge today
Continue atovaquone 750mg po bid and azithromycin 500mg po daily x 10d through 01/05/25 for Babesia.
- Continue empiric doxycycline 100mg po bid xd 10d through 01/05/25 for possible co-infection with other tick-borne illness
-Repeat parasite smear, cbcp, cmp on 01 03 or 01/04 before end of therapy. Infectious disease electronically sent lab prescription to [facility]
Mild LFT Elevation, possibly related to hypotension
Could also be elevated given babesiosis
-Hold Crestor
Abdominal ultrasound without any obstructive pathology
Acute hep panel negative
Continue to monitor LFTs
Thrombocytopenia
Slowly improving; per patient her platelets was high for which she has seen hematology
Monitor
Hypotension
Slowly improving, denies any dizziness
Hyperlipidemia
-Hold Crestor
DVT proph: SCDs
Code Status: Full Code
Anticipated Discharge: Today
Subjective/Interval History
-
Date of Service: December 28, 2024
Denies pain
Objective Data
-
Labs:
Laboratory Results
12/28/24
06:39
WBC 6.4
Hgb 8.2 L
Hct 24.4 L
Plt Count 229
Sodium 136
Potassium 4.4
Chloride 109 H
Carbon Dioxide 23
BUN 8
Creatinine 0.7
Glucose 92
Calcium 8.6
Total Bilirubin 0.6
AST 37 H
ALT 32
Alkaline Phosphatase 164 H
Vital Signs:
Vital Signs
Temp Pulse Resp BP Pulse Ox
99.1 F 70 16 90/54 98
12/28/24 07:58 12/28/24 07:58 12/28/24 07:58 12/28/24 07:58 12/28/24 08:03
I&O
12/27/24 12/28/24 12/29/24
06:59 06:59 06:59
Intake Total 3340 / 3340 3000 / 3000
Balance 3340 / 3340 3000 / 3000
--- NOTE | 2024-12-28 10:20 | W.DCSUMMARY ---
Discharge Summary
Discharge Data
Date of Admission: 12/22/24
Date of Discharge: 12/28/24
-
Pending Results: Yes
Hospital Course
69-year-old female with past medical history of hyperlipidemia, and recent right hemicolectomy secondary to volvulus came to the hospital with anemia. Patient initially required blood transfusion. Later that night patient had a fever episode which
was likely thought initially was secondary to blood transfusion. However patient continued to have multiple episodes of fever. CT abdomen was done which showed splenic infarct. Echocardiogram was done which was negative for any vegetation. Given
persistent fever infectious disease was then consulted. Patient parasite smear came positive for Babesia which could explain all her symptoms of hypotension and anemia which was possible acute hemolytic anemia. Patient was then started on
atovaquone, azithromycin and doxycycline. Patient symptoms continue to improve and no fevers continue to improve as well. On discharge infectious disease ordered labs for patient to get done outpatient to ensure babesia is improving. Once her
symptoms continue to improve over time, she was then discharged home with instructions to follow-up with all her physicians outpatient.
Discharge Plan
-
Patient Disposition: Home (Routine Discharge)
Discharge Diagnosis/Procedures: Babesiosis
Hyponatremia
Suspect acute hemolytic anemia
Thrombocytopenia
Hypotension
Condition: Fair
Diet: As tolerated
Activity: As tolerated
Driving Restrictions: As prior to admission
Bathing Restrictions: None
Blood Work: Repeat labs at [facility] on 01/03 or 01/04. Lab orders has been electronically sent to [facility].
Activity Restrictions/Additional Instructions:
Continue atovaquone 750mg po bid and azithromycin 500mg po daily x 10d through 01/05/25 for Babesia.
- Continue empiric doxycycline 100mg po bid xd 10d through 01/05/25 for possible co-infection with other tick-borne illness
-Repeat parasite smear, cbc, cmp on 01 03 or 01/04 before end of therapy.
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
Referrals:
Fransico Jarvis MD [Active, ColoRectal]
Sid Uribe DO [Family Provider, Family Practice] - in less than 1 week
Katy Hammonds MD [Active, Infectious Diseases]
Prescriptions:
New
atovaquone 750 mg/5 mL suspension
750 mg PO Q12H 10 Days Qty: 100 0RF
azithromycin 500 mg tablet
500 mg PO DAILY 10 Days Qty: 10 0RF
acetaminophen 325 mg Tablet
650 mg PO Q4HPRN PRN (Reason: mild pain/ fever>100.5F) Qty: 0 0RF
doxycycline hyclate 100 mg Capsule
100 mg PO Q12 Qty: 20 0RF
docusate sodium 100 mg Capsule
100 mg PO BID Qty: 0 0RF
Continued
rosuvastatin [Crestor] 10 mg Tablet
10 mg PO DAILY
therapeutic multivitamin Tablet
1 tab PO DAILY
calcium carbonate-vitamin D3 [Calcium 500 + D] 500 mg-10 mcg (400 unit) Tablet
1 tab PO DAILY
Discharge Orders:
Discharge Patient (As Directed); Ordered 12/28/24
Ordered By: Jack Chance
Discharge Date and Time
Discharge Date/Time: 12/28/24 11:28
Print Language: [id number]
[2024-12-28 10:32] LABS: Nucleated Red Blood Cells % 0 %
[2024-12-28 10:44] VITALS: BP 105/61
[2024-12-29 14:14] LABS: Lyme Antibody Screen, EIA Presump. Positive (Negative)
== END 2024-12-28 11:28 | disposition home or self-care (01) | DRG 812 ==
LOC: 4 EAST ACU 15:22
PROVIDERS: Physician Assistant; Physician Assistant Medical; ADMITTING PHYSICIAN Student in an Organized Health Care Education/Training Program; ATTENDING PHYSICIAN Internal Medicine; EMERGENCY PHYSICIAN Emergency Medicine; FAMILY PHYSICIAN Family Medicine; OTHER PHYSICIAN Internal Medicine Infectious Disease
PROC: 30233N1 Transfusion of Nonautologous Red Blood Cells into Peripheral Vein, Percutaneous Approach (ICD-10-PCS; 2024-12-22)
DX: D62 Acute posthemorrhagic anemia (principal); B60.00 Babesiosis, unspecified; E87.1 Hypo-osmolality and hyponatremia; F17.210 Nicotine dependence, cigarettes, uncomplicated; I95.9 Hypotension, unspecified; D69.6 Thrombocytopenia, unspecified; D73.5 Infarction of spleen
CPT/HCPCS: 71046; 74177; 76700; 80053; 81003; 81015; 82607; 82728; 82746; 83540; 83550; 83930; 83935; 84145; 84300; 84443; 85014; 85018; 85025; 85027; 86617; 86618; 86705; 86709; 86803; 86850; 86900; 86901; 86920; 87015; 87040; 87207; 87340; 93005; 93306; 99284; J2916; P9016; Q9967